=== PATIENT | female | born 1990 | race Caucasian/White ===

== ENCOUNTER 2016-06-14 18:39 | Emergency (ER) | payer OTHER ==
[2016-06-14 19:03] VITALS: BP 129/78
--- NOTE | 2016-06-14 20:10 | UC ---
Headache HPI - HPI Summary HPI Summary: The patient comes in today for: 1. Headache: Onset: 7 hours. Palliative/provocative: Nothing makes it better or worse. Quality: Throbbing headache. Region: Behind the eyes and in the occiput. Severity: 8/10 Time: Constant. Associated symptoms: Previous treatment: Ibuprofen 400 mg at 1 PM today--no help. Tylenol 1000 mg x 1 at 5 PM--no help. Migraine history: In 2011 at [facility], she was seen and diagnosed as having a migraine at that time. The headache was at the base of her neck and behind her eyes. She got Naproxen. At times it helped. These headaches were random (once every 2 months). Now, starting about 2 weeks ago she had onset of her "regular headaches." She states that her "regular" headaches are always frontal, but not occipetal. And they are lesser in pain. But, she states that her "migraine headaches" are also frontal and occipetal and more severe. Starting two weeks ago, she has had new symptoms (tingling of her fingers, and moves down her leg). She started with a "migraine" headache today. She states that the light makes her headache throb more. Vomiting x 1 today (1-2 hours ago). She states that she has tingling in her left hand. She has other family members with "migraine." She has never seen a neurologist. The patient states that she takes ibuprofen "all the time" and has no problems. She has problems with naproxen. * - History Of Current Complaint Chief Complaint: UCBackPain Stated Complaint: SEVERE BANG-INDUCING VOMITING Time Seen by Provider: 06/14/16 19:56 Hx Obtained From: Patient Hx Last Menstrual Period: 06/08/16 ?: No - Allergies/Home Medications Allergies/Adverse Reactions: Allergies Allergy/AdvReac Type Severity Reaction Status Date / Time Naproxen [From Naprosyn] Allergy Itching, Verified 06/14/16 19:02 "I felt like I had bugs crawling all over me." Home Medications: Home Medications Acetaminophen [Extra Strength Acetaminop] 1,000 mg PO ONCE PRN 06/14/16 [ History Confirmed 06/14/16] Ibuprofen TAB* [Advil TAB*] 400 mg PO Q6H PRN 06/14/16 [History Confirmed ] PMH/Surg Hx/FS Hx/Imm Hx Previously Healthy: No Endocrine History Of: Denies: Diabetes, Thyroid Disease, Hyperthyroidism, Hypothyroidism, Dyslipidemia Cardiovascular History Of: Denies: Cardiac Disorders, Hypertension, Pacemaker/ICD, Myocardial Infarction , Congestive Heart Failure, Atrial Fibrillation, Deep Vein Thrombosis, Bleeding Disorders Respiratory History Of: Denies: COPD, Asthma, Bronchitis, Pneumonia, Pulmonary Embolism GI/ History Of: Denies: Gastroesophageal Reflux, Ulcer, Gastrointestinal Bleed, Gall Bladder Disease, Kidney Stones, Diverticulitis, Renal Disease, Urosepsis Neurological History Of: Reports: Migraine Denies: TIA, CVA, Dementia, Seizures Psychological History Of: Reports: Depression, Bipolar Disorder Denies: Anxiety, Schizophrenia, Post Traumatic Stress Disorder Cancer History Of: Denies: Lung Cancer, Colorectal Cancer, Breast Cancer, Prostate Cancer, Cervical Cancer Other History Of: Negative For: HIV, Hepatitis B, Hepatitis C, Anticoagulant Therapy - Surgical History Surgical History: Yes Surgery Procedure, Year, and Place: , 2006, [facility]. [facility], 2011, Dr. Stephan Mcghee - Family History Known Family History: Positive: Hypertension, Diabetes - Social History Occupation: Employed Full-time Alcohol Use: Rare Substance Use Type: None Smoking Status (MU): Heavy Every Day Tobacco Smoker Type: Cigarettes Amount Used/How Often: 1 PPD Length of Time of Smoking/Using Tobacco: 10 yrs Have You Smoked in the Last Year: Yes Household Exposure Type: Cigarettes Review of Systems Constitutional: Negative Skin: Negative Eyes: Negative ENT: Negative Respiratory: Negative Cardiovascular: Negative Gastrointestinal: Negative Genitourinary: Negative All Other Systems Reviewed And Are Negative: Yes Physical Exam Triage Information Reviewed: Yes Appearance: Well-Appearing, No Pain Distress, Well-Nourished Vital Signs: Initial Vital Signs Temp 98 F 06/14/16 18:54 Pulse 96 06/14/16 18:54 Resp 16 06/14/16 18:54 BP 129/78 06/14/16 18:54 Pulse Ox 98 06/14/16 18:54 Vital Signs Reviewed: Yes Eyes: Positive: Conjunctiva Clear. Negative: Discharge ENT: Positive: Hearing grossly normal. Negative: Pharyngeal erythema, Nasal congestion, Nasal drainage, TM bulging, TM dull, TM red, Tonsillar swelling, Tonsillar exudate Dental: Negative: Gross Decay/Caries @, Dental Fracture @ Neck: Positive: Supple, Nontender, No Lymphadenopathy. Negative: Nuchal Rigidity Respiratory: Positive: Lungs clear, No respiratory distress, No accessory muscle use. Negative: Crackles, Wheezing Cardiovascular: Positive: RRR, No Murmur Abdomen Description: Positive: Nontender, No Organomegaly, Soft. Negative: Distended, Guarding, Peritoneal Signs Musculoskeletal: Positive: Strength Intact, ROM Intact Neurological: Positive: Alert, Muscle Tone Normal, Other: - Neurologic exam: Inspection: No fasciculations. Muscular tone: Normal Strength: Upper and lower extremities symmetrical and appropriate for age. Cranial nerves: II through XII were normal. Reflexes: Upper extremity: biceps: 2+/2 x 2, triceps: 2+/2 x 2, brachioradialis: 2+/2 x 2 Lower extremity: Patellar: 2+ /2 x 2, Achilles: 2+/2 x 2 Gait: Normal Coordination: Upper: Finger to nose and alternating palms on thighs: Normal Lower: Heel along montero: Normal Rhomberg: Normal. Negative: Lethargic Psychological: Positive: Age Appropriate Behavior, Consolable Skin: Negative: rashes, breakdown Headache Course/Dx - Course Course Of Treatment: The patient was told of her treatment options. She states that she can't take naproxen due to side effects, but she uses ibuprofen "all the time" with no problems. She wants to go back to work tonight. She was told of her treatment options. She wants to go with a muscle relaxant. With her taking Wellbutrin, baclofen may increase the risk of seizures, so valium was given to use at bedtime. - Differential Dx/Diagnosis Provider Diagnoses: Headache (muscular contraction). neck strain Discharge - Discharge Plan Condition: Stable Disposition: HOME Patient Education Materials: General Headache (ED) Referrals: No Primary Care Phys,NOPCP [Primary Care Provider] - 1 Week (Please see your primary care provider in about a week to see how well you are doing. If you get worse, please be seen sooner.)
[2016-06-14] MEDS ORDERED: Ketorolac INJ* 60 MG/2 ML VIAL IM ONE (20:26)
== END 2016-06-14 21:06 | disposition home or self-care (01) ==
LOC: UCCORT 18:39
DX: S16.1XXA Strain of muscle, fascia and tendon at neck level, initial encounter (principal); X58.XXXA Exposure to other specified factors, initial encounter; Y93.9 Activity, unspecified; Y92.9 Unspecified place or not applicable; G44.209 Tension-type headache, unspecified, not intractable; Z88.6 Allergy status to analgesic agent; F17.210 Nicotine dependence, cigarettes, uncomplicated
CPT/HCPCS: 96372; 99212; G0463; J1885

== ENCOUNTER 2017-04-18 15:56 | Emergency (ER) | payer OTHER ==
[2017-04-18 17:02] VITALS: BP 142/78
--- NOTE | 2017-04-18 17:22 | UC ---
Complaint Female HPI - HPI Summary HPI Summary: vaginal discharge x 2 days + itchy, bad odor feels like BV , Hx of BV multiple times no new sexual partner no hx of STDs - History Of Current Complaint Chief Complaint: UCGU Stated Complaint: PERSONAL Time Seen by Provider: 04/18/17 17:17 Hx Obtained From: Patient Hx Last Menstrual Period: 02/14/18 Onset/Duration: Gradual Onset, Lasting Days - 2, Still Present Timing: Constant Severity Initially: Moderate Severity Currently: Moderate Character: Not Applicable Aggravating Factor(s): Nothing Associated Signs And Symptoms: Positive: Vaginal Discharge. Negative: Fever, Back Pain, Vaginal Bleeding/Discharge, Nausea, Vomiting(# Of Episodes =), Genital Swelling, Genital Blisters, Retained Foregin Body (Specify) Related Hx: Similar Episode/Dx as: - BV - Allergies/Home Medications Allergies/Adverse Reactions: Allergies Allergy/AdvReac Type Severity Reaction Status Date / Time Naproxen [From Naprosyn] Allergy Itching, Verified 04/18/17 16:57 "I felt like I had bugs crawling all over me." Home Medications: Home Medications ARIPiprazole TAB* [Abilify TAB*] 5 mg PO DAILY 04/18/17 [History Confirmed ] PMH/Surg Hx/FS Hx/Imm Hx Previously Healthy: Yes Other History Of: Negative For: HIV, Hepatitis B, Hepatitis C, Anticoagulant Therapy - Surgical History Surgical History: Yes Surgery Procedure, Year, and Place: , 2006, [facility]. [facility], 2012, Dr. Stephan Mcghee - Family History Known Family History: Positive: Hypertension, Diabetes - Social History Alcohol Use: Rare Substance Use Type: None Smoking Status (MU): Heavy Every Day Tobacco Smoker Type: Cigarettes Amount Used/How Often: 1 PPD Length of Time of Smoking/Using Tobacco: 10 yrs Have You Smoked in the Last Year: Yes Household Exposure Type: Cigarettes Review of Systems Constitutional: Negative Skin: Negative Eyes: Negative ENT: Negative Respiratory: Negative Cardiovascular: Negative Gastrointestinal: Negative Genitourinary: Vaginal/Penile Itching, Vaginal/Penile Discharge Is Patient Immunocompromised?: No All Other Systems Reviewed And Are Negative: Yes Physical Exam Triage Information Reviewed: Yes Appearance: Well-Appearing, No Pain Distress, Well-Nourished Vital Signs: Initial Vital Signs Temp 99.3 F 04/18/17 16:58 Pulse 88 01/19/18 16:58 Resp 16 04/18/17 16:58 BP 142/78 04/18/17 16:58 Vital Signs Reviewed: Yes Eyes: Positive: Conjunctiva Clear ENT: Positive: Normal ENT inspection, Hearing grossly normal, Pharynx normal, Pharyngeal erythema Neck: Positive: Supple, Nontender, No Lymphadenopathy Respiratory: Positive: Chest non-tender, Lungs clear, Normal breath sounds Cardiovascular: Positive: RRR, No Murmur, Pulses Normal UC Physical Exam Vital Signs On Initial Exam: Initial Vitals Temp Pulse Resp BP 99.3 F 88 16 142/78 04/18/17 16:58 04/18/17 16:58 04/18/17 16:58 04/18/17 16:58 - Genitalia Exam Female Genitourinary: Other - no done Complaint Female Dx - Differential Dx/Diagnosis Provider Diagnoses: BV Discharge - Discharge Plan Condition: Stable Disposition: HOME Prescriptions: Metronidazole [Flagyl 500 MG TAB] 500 mg PO BID #14 tab Patient Education Materials: Bacterial Vaginosis (ED) Referrals: Bobbi Wisdom MD [Primary Care Provider] - If Needed
== END 2017-04-18 17:24 | disposition home or self-care (01) ==
LOC: UCCORT 15:56
DX: N76.0 Acute vaginitis (principal); F17.210 Nicotine dependence, cigarettes, uncomplicated; Z88.8 Allergy status to other drugs, medicaments and biological substances
CPT/HCPCS: 99212; G0463

== ENCOUNTER 2017-07-02 17:14 | Emergency (ER) | payer OTHER ==
[2017-07-02 18:17] VITALS: BP 125/69
--- NOTE | 2017-07-02 18:41 | UC ---
FLU HPI - HPI Summary HPI Summary: Pt c/o sudden onset of generalized malaise, sore throat, BANG, fatigue, has known exposure to flu. - History of Current Complaint Chief Complaint: UCRespiratory Stated Complaint: SORE THROAT, COUGH, ACHY BODY Time Seen by Provider: 07/02/17 18:35 Hx Obtained From: Patient Hx Last Menstrual Period: 06/15/17 ?: No Onset/Duration: Sudden Onset, Lasting Days, Still Present Severity Currently: Moderate Severity Initially: Moderate Pain Intensity: 7 Associated Signs & Symptoms: Positive: Fever - subjective, Myalgia, Cough, Sore Throat Related Hx: Possible Flu/Infectious Exposure - Allergy/Home Medications Allergies/Adverse Reactions: Allergies Allergy/AdvReac Type Severity Reaction Status Date / Time No Known Allergies Allergy Verified 07/02/17 18:13 Home Medications: Home Medications buPROPion SR TAB* [Wellbutrin SR TAB*] 150 mg QAM 07/02/17 [History Confirmed ] PMH/Surg Hx/FS Hx/Imm Hx Previously Healthy: Yes Other History Of: Negative For: HIV, Hepatitis B, Hepatitis C, Anticoagulant Therapy - Surgical History Surgical History: Yes Surgery Procedure, Year, and Place: , 2006, [facility]. [facility], 2012, Dr. Stephan Mcghee - Family History Known Family History: Positive: Hypertension, Diabetes - Social History Occupation: Employed Full-time Lives: With Family Alcohol Use: Occasionally Substance Use Type: None Smoking Status (MU): Heavy Every Day Tobacco Smoker Type: Cigarettes Amount Used/How Often: 1 PPD Length of Time of Smoking/Using Tobacco: 10 yrs Have You Smoked in the Last Year: Yes Household Exposure Type: Cigarettes Review of Systems Constitutional: Fever, Chills, Fatigue Skin: Negative Eyes: Negative ENT: Sore Throat, Sinus Congestion Respiratory: Cough Cardiovascular: Negative Gastrointestinal: Negative Genitourinary: Negative Motor: Negative Neurovascular: Negative Musculoskeletal: Myalgia Neurological: Headache Psychological: Negative Is Patient Immunocompromised?: No All Other Systems Reviewed And Are Negative: Yes Physical Exam Triage Information Reviewed: Yes Appearance: Ill-Appearing Vital Signs: Initial Vital Signs Temp 97.9 F 07/02/17 18:14 Pulse 83 07/02/17 18:14 Resp 16 07/02/17 18:14 BP 125/69 07/02/17 18:14 Pulse Ox 96 07/02/17 18:14 Vital Signs Reviewed: Yes Eye Exam: Normal ENT Exam: Other ENT: Positive: Nasal congestion Dental Exam: Normal Neck exam: Normal Cardiovascular Exam: Normal Musculoskeletal Exam: Normal Neurological Exam: Normal Psychological Exam: Normal Skin Exam: Normal Flu Course/Dx - Course Course Of Treatment: Pt declined flu testing. - Differential Dx/Diagnosis Differential Diagnosis/HQI/PQRI: Influenza, Upper Respiratory Infection Provider Diagnoses: viral syndrome Discharge - Sign-Out/Discharge Documenting (check all that apply): Discharge - Discharge Plan Condition: Stable Disposition: HOME Patient Education Materials: Viral Syndrome (ED) Forms: *Work Release Referrals: Bobbi Wisdom MD [Primary Care Provider] - If Needed - Billing Disposition and Condition Condition: STABLE Disposition: HOME
== END 2017-07-02 18:50 | disposition home or self-care (01) ==
LOC: UCCORT 17:14
DX: B34.9 Viral infection, unspecified (principal); F17.210 Nicotine dependence, cigarettes, uncomplicated
CPT/HCPCS: 99211; G0463

== ENCOUNTER 2017-10-17 10:15 | Emergency (ER) | payer SELFPAY ==
[2017-10-17 10:49] VITALS: BP 119/58
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
== END 2017-10-17 11:12 | disposition home or self-care (01) ==
LOC: UCCORT 10:15
DX: M54.5 Low back pain (principal); F17.210 Nicotine dependence, cigarettes, uncomplicated
CPT/HCPCS: 99201; G0463

== ENCOUNTER → 2017-10-21 11:08 | Emergency (ER) | payer SELFPAY ==
[~2017-10-21 11:08] MED LIST: Ketorolac INJ* 60 MG/2 ML VIAL IM ONE
[2017-10-21 11:31] VITALS: BP 131/55
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
== END | disposition home or self-care (01) ==
LOC: ED 11:08
DX: M54.5 Low back pain (principal); G89.29 Other chronic pain; F17.210 Nicotine dependence, cigarettes, uncomplicated
CPT/HCPCS: 99281; J1885

== ENCOUNTER 2017-11-14 20:56 | Inpatient (IN) | payer MEDICAID ==
--- OUTSIDE RECORDS SUMMARY | 2017-11-14 21:51 | XMS REPORT ---
:1990 External Reference #:[id number] Author Organization [facility] Address [address] [place] [address] [place] [address] Phone [phone] Care Team Providers Name Role Phone Patient's Choice Care Team Information Senior Qa Analyst Unavailable Patient's Choice Primary Care Physician Unavailable Payers Type Date Identification Numbers Payment Provider Subscriber Commercial Effective: Policy Number: Heath aSnchez 2007 [id number] PayID: [id number] [address] [place] [address] 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 [employer] ETOH Use Denies alcohol use Smoking Heavy tobacco smoker (more than 10 cigarettes/day) Allergies, Adverse Reactions, Alerts Date Description Reaction Status Severity Comments 10/21/2017 Paxil active 10/21/2017 Prozac active 10/21/2017 Zoloft active 10/21/2017 Lexapro active 10/21/2017 Ssri's active 11/25/2011 NKDA inactive Medications Medication Date Status Form Strength Qnty SIG Indications Ordering Provider Buspirone HCL 10/21/ Active Tablets 10mg 60tab 1 tab F41.1 Taylor 2018 s twice a Senner, day DO Ibuprofen / Active Tablets 600mg 90tab tid White, 0000 s MD Vanesa Multi Complete / Active Capsules daily Unknown 0000 Cyclobenzaprine / Active Tablets 5mg currently Unknown HCL 0000 not taking- take one tablet by mouth every 8 hours prn. Abilify / Hx Tablets 5mg 30tab 1 po qd White, 0000 - s Vanesa, 2017 Wellbutrin SR / Hx Tablets ER 150mg 60tab 1 po bid White, 0000 - 12HR s Vanesa, 2017 Vital Signs Date Vital Result Comment 10/21/2017 Weight 262.00 lb Heart Rate 80 /min BP Systolic Sitting 132 mmHg BP Diastolic Sitting 77 mmHg Respiratory Rate 18 /min Pain Level 8 back O2 % BldC Oximetry 100 % 11/25/2011 Weight 230.00 lb Heart Rate 80 /min BP Systolic Sitting 124 mmHg BP Diastolic Sitting 80 mmHg Results Description No Information Procedures Description No Information Encounters Type Date Location Provider CPT E/M Dx Office Visit 11/29/2011 [facility], [address] 845.00 10:00a CBertram Gregg Office Visit 11/25/2011 [facility] Otto Abebe M.D. 87850 719.46 3:45p AT [facility] Future Appointment(s):10/28/2017 2:30 pm - Rick Soni MD at [facility]10/21/2017 - Taylor Liu DOM54.5 Low back painRecommendations: Follow up with Physical BrexyjsD57.1 Generalized anxiety disorderNew Medication: Buspirone HCL 10 mgReferral:No Doctor SelectedPatient's Choice,Recommendations: Make an appointment with the psychiatrist and continue to follow up with your therapist
--- OUTSIDE RECORDS SUMMARY | 2017-11-14 21:51 | XMS REPORT ---
:1990 External Reference #:[id number] Author Organization [facility] Address [address] [place] [address] Phone [phone] Care Team Providers Name Role Phone Patient's Choice Care Team Information Occupational Medicine Physician Unavailable Patient's Choice Primary Care Physician Unavailable Payers Type Date Identification Numbers Payment Provider Subscriber Commercial Effective: Policy Number: Heath Sanchez 2007 [id number] PayID: [id number] [address] [place] [address] [facility] Policy Number: [id number] Medicaid Arina Sanchez Group Name: 1 1 [address] PayID: [id number] [place] [address] Problems Description No Information Family History Date Family Member(s) Problem(s) Comments General bipolar General anxiety Social History Type Date Description Comments 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 71082 719.46 3:45p AT [facility] Future Appointment(s):10/28/2017 2:30 pm - Rick Soni MD at [facility]10/21/2017 - Taylor Liu DOM54.5 Low back painRecommendations: Follow up with Physical EoqtuuoA10.1 Generalized anxiety disorderNew Medication: Buspirone HCL 10 mgReferral:No Doctor SelectedRecommendations:Make an appointment with the psychiatrist and continue to follow up with your therapist
[2017-11-14 23:24] LABS: Urine Appearance Cloudy; Urine Blood 1+ (Negative); Urine Color Yellow; Urine Ketones 1+ (Negative); Urine Protein Negative (Negative); Urine Red Blood Cell 3+(>10/hpf) (Absent); Urine Urobilinogen Negative (Negative); Urine White Blood Cell 3+(>20/hpf) (Absent)
[2017-11-14 23:26] LABS: ABS Basophils 0.1 10^3/ul (0-0.2); ABS Eosinophils 0.1 10^3/ul (0-0.6); ABS Neutrophils 11.6 10^3/ul (1.5-7.7); ABS Nucleated RBC 0 10^3/ul; Eosinophil % 0.9 % (0-6); Hematocrit 48 % (35-47); Hemoglobin 16.4 g/dl (12.0-16.0); Mean Corpuscular HGB Conc 34 g/dl (31-36); Mean Corpuscular Hemoglobin 30 pg (27-31); Mean Corpuscular Volume 88 fL (80-97); Mean Platelet Volume 8.5 um3 (7.4-10.4); Nucleated Red Blood Cells % 0; Platelet Count 410 10^3/ul (150-450); Red Blood Count 5.45 10^6/ul (4.00-5.40); Red Cell Distribution Width 12 % (10.5-15); White Blood Count 15.8 10^3/ul (3.5-10.8)
[2017-11-14] MEDS ORDERED: NS 0.9% 1000 ML* 1,000 ML IV ONE (23:40)
--- NOTE | 2017-11-14 23:40 | ED ---
Psychiatric Complaint - HPI Summary HPI Summary: This patient is a 27-year-old female who presents to the emergency department with a her boyfriend with a chief complaint of having depression. The patient doesn't cooperate well a good history. The patient's boyfriend reports that for the last couple days the patient is a having decreased appetite,sleeping most of the day, and communicating ventilator with him. He reports that a couple years ago she had the same symptoms and she was diagnosed with bipolar disorder. Apparentlythe patient had an episode catatonia The patient was hospitalizedand the symptoms improved. - History Of Current Complaint Chief Complaint: EDMentalHealth Time Seen by Provider: 11/14/17 23:09 Hx Last Menstrual Period: pt has an IUD and states not getting a menses - Allergies/Home Medications Allergies/Adverse Reactions: Allergies Allergy/AdvReac Type Severity Reaction Status Date / Time No Known Allergies Allergy Verified 11/14/17 21:28 Home Medications: Home Medications Ibuprofen TAB* [Motrin TAB* 400 MG] 400 mg PO Q6H PRN 11/14/17 [History Confirmed 11/14/17] PMH/Surg Hx/FS Hx/Imm Hx Previously Healthy: Yes Endocrine/Hematology History: Denies: Hx Anticoagulant Therapy, Hx Diabetes, Hx Thyroid Disease Cardiovascular History: Denies: Hx Congestive Heart Failure, Hx Deep Vein Thrombosis, Hx Hypertension , Hx Myocardial Infarction, Hx Pacemaker/ICD Respiratory History: Denies: Hx Asthma, Hx Chronic Obstructive Pulmonary Disease (COPD), Hx Lung Cancer, Hx Pneumonia, Hx Pulmonary Embolism GI History: Denies: Hx Gall Bladder Disease, Hx Gastrointestinal Bleed, Hx Ulcer, Hx Urosepsis History: Denies: Hx Kidney Stones, Hx Renal Disease Musculoskeletal History: Reports: Hx Back Problems Neurological History: Reports: Hx Migraine Denies: Hx Dementia, Hx Seizures, Hx Transient Ischemic Attacks (TIA) Psychiatric History: Reports: Hx Depression, Hx Bipolar Disorder Denies: Hx Anxiety, Hx Schizophrenia - Surgical History Surgery Procedure, Year, and Place: , 2006, [facility] Infectious Disease History: No Infectious Disease History: Denies: Traveled Outside the [place] in Last 30 Days - Family History Known Family History: Positive: Hypertension, Diabetes - Social History Alcohol Use: Occasionally Substance Use Type: Reports: Cocaine Substance Use Comment - Amount & Last Used: no use in 2 weeks, states in an out pt tx center Smoking Status (MU): Heavy Every Day Tobacco Smoker Type: Cigarettes Amount Used/How Often: 1 PPD Length of Time of Smoking/Using Tobacco: since age 14 Have You Smoked in the Last Year: Yes Review of Systems Constitutional: Negative Eyes: Negative ENT: Negative Positive: Palpitations Respiratory: Negative Gastrointestinal: Negative Genitourinary: Negative Positive: Arthralgia, Other - chronic back pain chronic back pain Skin: Negative Neurological: Negative Positive: Anxious, Depressed All Other Systems Reviewed And Are Negative: Yes Physical Exam - Summary Physical Exam Summary: VITAL SIGNS: Reviewed. GENERAL: Patient is an obese female who is lying comfortable in the stretcher. Patient is not in any acute respiratory distress. HEAD AND FACE: No signs of trauma. No ecchymosis, hematomas or skull depressions. No sinus tenderness. EYES: PERRLA, EOMI x 2, No injected conjunctiva, no nystagmus. EARS: Hearing grossly intact. Ear canals and tympanic membranes are within normal limits. MOUTH: Oropharynx within normal limits. NECK: Supple, trachea is midline, no adenopathy, no JVD, no carotid bruit, no c- spine tenderness, neck with full ROM. CHEST: Symmetric, no tenderness at palpation LUNGS: Clear to auscultation bilaterally. No wheezing or crackles. CVS: Regular rate and rhythm, S1 and S2 present, no murmurs or gallops appreciated. ABDOMEN: Soft, non-tender. No signs of distention. No rebound no guarding, and no masses palpated. Bowel sounds are normal. EXTREMITIES: FROM in all major joints, no edema, no cyanosis or clubbing. NEURO: Alert and oriented x 3. No acute neurological deficits. Speech is normal and follows commands. SKIN: Dry and warm PSYCH: Depressed, quiet, denies any suicidal thoughts or plan. No homicidal thoughts or plan. No signs of psychosis or pressure speech. No tangential speech. Triage Information Reviewed: Yes Vital Signs On Initial Exam: Initial Vitals Temp Pulse Resp BP Pulse Ox 98.8 F 108 20 148/94 100 11/14/17 21:25 11/14/17 21:25 11/14/17 21:25 11/14/17 21:25 11/14/17 21:25 Vital Signs Reviewed: Yes Diagnostics - Vital Signs Vital Signs Temp Pulse Resp BP Pulse Ox 11/14/17 21:25 98.8 F 108 20 148/94 100 - Laboratory Lab Results: Lab Results 11/14/17 11/14/17 Range/Units 23:12 23:21 WBC 15.8 H (3.5-10.8) 10^3/ul RBC 5.45 H (4.00-5.40) 10^6/ul Hgb 16.4 H (12.0-16.0) g/dl Hct 48 H (35-47) % MCV 88 (80-97) fL MCH 30 (27-31) pg MCHC 34 (31-36) g/dl RDW 12 (10.5-15) % Plt Count 410 (150-450) 10^3/ul MPV 8.5 (7.4-10.4) um3 Neut % (Auto) 73.2 (38-83) % Lymph % (Auto) 19.0 L (25-47) % [place] % (Auto) 6.2 (0-7) % Eos % (Auto) 0.9 (0-6) % Baso % (Auto) 0.7 (0-2) % Absolute Neuts (auto) 11.6 H (1.5-7.7) 10^3/ul Absolute Lymphs (auto) 3.0 (1.0-4.8) 10^3/ul Absolute Monos (auto) 1.0 H (0-0.8) 10^3/ul Absolute Eos (auto) 0.1 (0-0.6) 10^3/ul Absolute Basos (auto) 0.1 (0-0.2) 10^3/ul Absolute Nucleated RBC 0 10^3/ul Nucleated RBC % 0 Urine Color Yellow Urine Appearance Cloudy Urine pH 6.0 (5-9) Ur Specific [place] 1.010 (1.010-1.030) Urine Protein Negative (Negative) Urine Ketones 1+ A (Negative) Urine Blood 1+ A (Negative) Urine Nitrate Negative (Negative) Urine Bilirubin Negative (Negative) Urine Urobilinogen Negative (Negative) Ur Leukocyte Esterase 3+ A (Negative) Urine WBC (Auto) 3+(>20/hpf) A (Absent) Urine RBC (Auto) 3+(>10/hpf) A (Absent) Ur Squamous Epith Cells Present A (Absent) Urine Bacteria 1+ A (Absent) Urine Glucose Negative (Negative) Result Diagrams: 11/14/17 23:21 11/14/17 23:21 Lab Statement: Any lab studies that have been ordered have been reviewed, and results considered in the medical decision making process. - Radiology chest x-ray Xray Interpretation: No Acute Changes Radiology Interpretation Completed By: ED Physician Course/Dx - Course Assessment/Plan: blood test results shows a what was a count of 15.8,hemoglobin 16.4 hematocrit of 48 possibly secondary to dehydration. Urinalysis is contaminated. We will send the urine for urine cultures. Chest x-ray impression: No acute cardiopulmonary disease. Patient is medically clear. Patient is awaiting for mental health evaluation. Patient will be signed out to Dr. Sosa at shift change. - Differential Dx/Clinical Impression Differential Diagnosis/HQI/PQRI: Positive: Bipolar Disorder, Depression Provider Diagnosis: Depression Discharge - Sign-Out/Discharge Documenting (check all that apply): Sign-Out Patient Signing out patient TO: Mare Sosa - Discharge Plan Referrals: Bobbi Wisdom MD [Primary Care Provider] -
[2017-11-14 23:42] LABS: EGFR Non-African American 95.8 (>60)
[2017-11-15] MEDS ORDERED: Cephalexin CAP* 500 MG PO ONE (05:05)
--- NOTE | 2017-11-15 06:16 | ED ---
Progress - Progress Note Progress Note: Patient received from Dr. Avila upon shift change pending MHE and disposition. Patient will be signed out to Dr. Jain pending MHE and disposition. Course/Dx - Course Course Of Treatment: Patient received from Dr. Avila upon shift change pending MHE and disposition. Patient will be signed out to Dr. Jain pending MHE and disposition. - Diagnoses Provider Diagnoses: Depression Discharge - Sign-Out/Discharge Documenting (check all that apply): Sign-Out Patient, Receiving Sign-Out Signing out patient TO: Lobo Jain - Upon shift change pending MHE and disposition Receiving patient FROM: Prasanna Avila - Upon shift change pending MHE and disposition - Discharge Plan Condition: Stable Referrals: Bobbi Wisdom MD [Primary Care Provider] - Attestations Scribe Attestation: This is cristobal Cazares documenting for attending Mare Sosa MD. User Type: Provider with Scribe Provider Attestation: The documentation recorded by the scribe accurately reflects the service I personally performed and the decisions made by me.
--- NOTE | 2017-11-15 07:04 | ED ---
Progress - Progress Note Progress Note: Patient received from Dr. Sosa upon shift change pending MHE and disposition. Patient will be signed out to Dr. Jain pending MHE and disposition. 07:00- The pt received from Dr. Sosa and is still awaiting a MHE Course/Dx - Course Course Of Treatment: Guzman Alvarez MD diagnosed the pt with bipolar disorder and recommended an involuntary admission. - Diagnoses Provider Diagnoses: Depression, Bipolar 1 disorder Discharge - Sign-Out/Discharge Documenting (check all that apply): Patient Departure - Admitted, Receiving Sign -Out Receiving patient FROM: Mare Sosa - Discharge Plan Condition: Stable Disposition: ADMITTED TO [facility] - Billing Disposition and Condition Condition: STABLE Disposition: Admitted to [facility]
--- NOTE | 2017-11-15 07:30 | PN ---
ED Flex Patient Progress Note Subjective: This is a 27 year-old F who is pending psychiatric evaluation by Dr. Turner secondary to bipolar, increased depression . Pt offers no complaints at this time. WOuld like breakfast Objective: General NAD, Alert and oriented x3, low mood. Heart: rrr S1,S2 Lungs: CTA, BREATHING EASILY ab: +BS, soft, NTTP Laboratory: Current laboratory results documented below. Assessment: Exacerbation of Depression, bipolar d/o Plan: Pending psychiatric eval. Will follow up daily __while in ED___. Vital Signs Temp Pulse Resp BP Pulse Ox 98.8 F 80 18 110/63 98 11/14/17 21:25 11/15/17 02:13 11/15/17 02:13 11/15/17 02:13 11/15/17 02:13 Lab Results - Entire Visit 11/14/17 11/14/17 11/14/17 23:21 23:21 23:12 WBC 15.8 H RBC 5.45 H Hgb 16.4 H Hct 48 H MCV 88 MCH 30 MCHC 34 RDW 12 Plt Count 410 MPV 8.5 Neut % (Auto) 73.2 Lymph % (Auto) 19.0 L [place] % (Auto) 6.2 Eos % (Auto) 0.9 Baso % (Auto) 0.7 Absolute Neuts (auto) 11.6 H Absolute Lymphs (auto) 3.0 Absolute Monos (auto) 1.0 H Absolute Eos (auto) 0.1 Absolute Basos (auto) 0.1 Absolute Nucleated RBC 0 Nucleated RBC % 0 Sodium 137 Potassium 4.0 Chloride 105 Carbon Dioxide 22 Anion Gap 10 BUN 9 Creatinine 0.72 Est GFR ( Amer) 115.9 Est GFR (Non-Af Amer) 95.8 BUN/Creatinine Ratio 12.5 Glucose 100 Calcium 9.2 Total Bilirubin 1.10 H AST 22 ALT 32 Alkaline Phosphatase 83 Total Protein 8.2 Albumin 4.5 Globulin 3.7 Albumin/Globulin Ratio 1.2 TSH 0.59 Urine Color Urine Appearance Urine pH Ur Specific [place] Urine Protein Urine Ketones Urine Blood Urine Nitrate Urine Bilirubin Urine Urobilinogen Ur Leukocyte Esterase Urine WBC (Auto) Urine RBC (Auto) Ur Squamous Epith Cells Urine Bacteria Urine Glucose Salicylates < 2.50 Urine Opiates Screen None detected Acetaminophen < 15 Ur Barbiturates Screen None detected Ur Phencyclidine Scrn None detected Ur Amphetamines Screen None detected U Benzodiazepines Scrn None detected Urine Cocaine Screen None detected U Cannabinoids Screen None detected Serum Alcohol < 10 11/14/17 23:12 WBC RBC Hgb Hct MCV MCH MCHC RDW Plt Count MPV Neut % (Auto) Lymph % (Auto) [place] % (Auto) Eos % (Auto) Baso % (Auto) Absolute Neuts (auto) Absolute Lymphs (auto) Absolute Monos (auto) Absolute Eos (auto) Absolute Basos (auto) Absolute Nucleated RBC Nucleated RBC % Sodium Potassium Chloride Carbon Dioxide Anion Gap BUN Creatinine Est GFR ( Amer) Est GFR (Non-Af Amer) BUN/Creatinine Ratio Glucose Calcium Total Bilirubin AST ALT Alkaline Phosphatase Total Protein Albumin Globulin Albumin/Globulin Ratio TSH Urine Color Yellow Urine Appearance Cloudy Urine pH 6.0 Ur Specific [place] 1.010 Urine Protein Negative Urine Ketones 1+ A Urine Blood 1+ A Urine Nitrate Negative Urine Bilirubin Negative Urine Urobilinogen Negative Ur Leukocyte Esterase 3+ A Urine WBC (Auto) 3+(>20/hpf) A Urine RBC (Auto) 3+(>10/hpf) A Ur Squamous Epith Cells Present A Urine Bacteria 1+ A Urine Glucose Negative Salicylates Urine Opiates Screen Acetaminophen Ur Barbiturates Screen Ur Phencyclidine Scrn Ur Amphetamines Screen U Benzodiazepines Scrn Urine Cocaine Screen U Cannabinoids Screen Serum Alcohol
--- NOTE | 2017-11-15 07:36 | RAD ---
HISTORY: increased WBC COMPARISONS: None VIEWS: 2: Frontal and lateral views of the chest. The patient is obliqued to the left. FINDINGS: CARDIOMEDIASTINAL SILHOUETTE: The cardiomediastinal silhouette is normal. DAVIS: The davis are normal. PLEURA: The costophrenic angles are sharp. No pleural abnormalities are noted. LUNG PARENCHYMA: There is patchy alveolar opacification of the right lung base near the cardiophrenic angle. ABDOMEN: The upper abdomen is clear. There is no subphrenic gas. BONES AND SOFT TISSUES: No bone or soft tissue abnormalities are noted. OTHER: None. IMPRESSION: PATCHY ATELECTASIS VERSUS EARLY CONSOLIDATION OF THE RIGHT LOWER LUNG. RECOMMEND FOLLOW-UP UNTIL RESOLUTION TO EXCLUDE UNDERLYING PULMONARY PARENCHYMAL PATHOLOGY. R1
[2017-11-15] MEDS ORDERED: Acetaminophen TAB* 325 MG PO ONE (14:37)
[2017-11-15] MEDS ORDERED: Al Hydrox/Mg Hydrox/Simet LIQ* 30 ML UDC PO PRN (14:45)
[2017-11-16] MEDS ORDERED: Acetaminophen TAB* 325 MG ONE (04:16)
[2017-11-16] MEDS ORDERED: diPHENhydraMINE PO* 50 MG ONE (04:17)
[2017-11-16] MEDS: Vitamin THERAPEUTIC TAB PO SCH (08:36)
[2017-11-16] MEDS ORDERED: Haloperidol TAB* 5 MG PO ONE ×2 (18:25→19:00)
[2017-11-16] MEDS ORDERED: LORazepam TAB(*) 1 MG PO ONE ×2 (18:25→19:00)
[2017-11-16] MEDS ORDERED: LORazepam TAB(*) 1 MG ONE (18:30)
[2017-11-16] MEDS ORDERED: Haloperidol TAB* 5 MG ONE (18:30)
[2017-11-16] MEDS: Lithium Carbonate TAB* 300 MG PO SCH (20:23)
[2017-11-16] MEDS ORDERED: QUEtiapine TAB* 100 MG PO SCH (21:00)
--- NOTE | 2017-11-16 21:28 | HP ---
HISTORY AND PHYSICAL: DATE OF ADMISSION: 11/15/17 IDENTIFYING DATA: Arina is a 27-year-old partnered, domiciled, white female, who was referred by her significant other and she was admitted on emergency status. SOURCE OF INFORMATION: The patient is acutely psychotic, uncooperative with answering questions, severely disorganized in her behavior. This note is dictated based on limited interaction with the patient, review of previous record here, and admission data. HISTORY OF PRESENT ILLNESS: The patient was reportedly driven to this hospital by her significant other, a . Milo Clark, who reported that about 2 days prior to presentation, the patient started having difficulty with insomnia, became increasingly disorganized in her thinking and behavior and extremely paranoid. As the patient's condition continued to deteriorate, he decided to bring her to the hospital. He mentioned that the patient has a history of bipolar disorder and has been in treatment at "somewhere in [facility]."He was unaware of the name of the providers or medications prescribed to the patient or if the patient had been adherent to treatment. The patient does have a history of polysubstance abuse. The boyfriend denied having observed the patient drinking or using drugs recently. REVIEW OF PSYCHIATRIC SYMPTOMS: The patient presents with symptoms of insomnia , decreased need for sleep, irritability, mood lability. Unable to assess for racing thoughts. She is not pressured in speech. She has been exhibiting paranoid delusions, long latencies in speech, and disorganized thinking and behavior. The patient admitted to high anxiety and was previously being prescribed buspirone by her outpatient providers. The patient denied recent use of alcohol or drugs. PAST PSYCHIATRIC HISTORY: The patient has a history of one admission here from 10/19/08 to 10/27/08 for treatment of a manic episode. She was discharged on lithium and Geodon in an improved state. T PAST MEDICAL HISTORY: Remarkable for morbid obesity. She denies any other active medical problems, any history of head trauma with loss of consciousness, seizures, or surgeries. ALLERGIES: No known drug allergies. SUBSTANCE ABUSE HISTORY: Notes indicate that the patient used to be a binge drinker and she also has used marijuana on a regular basis, had admitted to doing cocaine and "pills occasionally," and to smoking cigarettes. FAMILY HISTORY: She has a strong family history of bipolar disorder and substance use disorder. Her mother has a history of psychiatric hospitalization and was diagnosed with bipolar disorder. SOCIAL HISTORY: The patient lives in [place] with her significant other. There is mention of her having had a in the past, but the patient is unable to state how many children she has, whether or not she is employed or how long she has been in the current relationship. REVIEW OF MEDICAL SYMPTOMS: Obesity. PHYSICAL EXAMINATION VITAL SIGNS: On admission, respirations are 18. The patient has been compliant with taking of complete set of vitals. The patient declined physical examination. We will reattempt when the patient is no longer psychotic. MENTAL STATUS EXAM: Finds a morbidly obese, 27-year-old female with visible tattoos on her upper chest, who looks her stated age. She is disheveled in her appearance, she makes intense eye contact. She exhibits significant psychomotor retardation and long latencies in speech. She presents as psychotically related. She is uncooperative, for the most part, with answering questions. She perseveres on asking when her significant other was going to come and take her home. She exhibits paranoid and persecutory delusions. She is alert, but does seem oriented to place, time, and person. Attention, memory , and concentration are all poor. LABORATORY DATA: On admission, CBC shows WBC of 15.8, RBC of 5.45, hemoglobin of 16.4, hematocrit of 48, lymph percentage 19, absolute neutrophils 11.6, absolute mono 1.0. Complete metabolic panel: Total bilirubin of 1.10. Urinalysis shows 1+ ketones, 1+ blood, 3+ leukocyte esterase, 3+ wbc's, 3+ rbc's , 1+ urine bacteria. Urine toxicology screen is negative for all the tested substances. SUMMARY: A 27-year-old female with documented history of bipolar disorder, who was brought in by her boyfriend in a manic state and she was admitted for treatment. The patient also have a history of alcohol and cannabis use. She alluded to outpatient treatment in [facility], but was unable to state which medications she had been taking. Med reconciliation form showed the patient was only taking buspirone for anxiety. Her medical history is remarkable for morbid obesity. Her labs are abnormal and her chest x-ray is also abnormal. There is a significant family history of bipolar and substance abuse in the patient's biological family on the maternal side but no documented history of completed suicide. The patient's stressors are unclear at this point. DIAGNOSTIC IMPRESSIONS: Bipolar I disorder, current episode manic, severe with psychotic features; history of alcohol and cannabis dependence. TREATMENT PLAN: Admit to mental health unit, 15-minute checks, full code status. Legal status is emergency. Initiate comprehensive milieu, individual, and group psychotherapeutic supports. Medication management: Will start the patient on lithium 300 mg p.o. b.i.d. and on Seroquel 100 mg at bedtime to help regulate sleep and mood. The patient nodded when told about the indications, risks, benefits, and alternatives, but it is unclear whether or not she is in a state where she can make informed medical decisions. Hospitalist consult was requested to address the patient abnormal labs and chest-x-ray. Discharge planning will involve coordination of her aftercare with her current outpatient psychiatric providers. [id number]/[facility] #: [id number] [place]
[2017-11-17] MEDS: Lithium Carbonate TAB* 300 MG PO SCH ×2 (10:29→19:52)
[2017-11-17] MEDS: Vitamin THERAPEUTIC TAB PO SCH (10:29)
[2017-11-17] MEDS ORDERED: Mouth Piece, Nicotine* 1 EACH CARTRIDGE ONE (13:06)
[2017-11-17] MEDS ORDERED: Nicotine Inhaler* 10 MG AMP ONE (13:06)
[2017-11-17] MEDS: Nicotine Inhaler* 10 MG AMP INH PRN (13:09)
[2017-11-17] MEDS: Mouth Piece, Nicotine* 1 EACH CARTRIDGE INH PRN (13:09)
[2017-11-17] MEDS: Nicotine PATCH 21 MG/24 HR* PATCH TRANSDERM SCH (13:09)
--- NOTE | 2017-11-17 15:24 | PN ---
Subjective - Subjective Date of Service: 11/17/17 Service Type: [id number] Hosp care 25 min moderate complexity Subjective: Patient is difficult to engage in conversation. She presents as disorganized, guarded and irritable. She requests nicotine replacement then is leery of nursing staff administering it. Patient states that her boyfriend no longer wants her at their home in [place] "because I was doing drugs." She states she last smoked crack cocaine approx 1 month ago and denies other substance use. ( Her urine tox was negative). She states she was a client of [employer] in [place] and saw Ana Umaña. 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 She reports having a 10yo son, Jean, who lives with her sister in [place]. Objective - Appearance Appearance: Obese Dysmorphic Features: Yes Hygiene: Normal Grooming: Fairly Well Kept - Behavior Psychomotor Activities: Normal Exhibits Abnormal Movement: No - Attitude and Relatedness Attitude and Relatedness: Psychotically Related Eye Contact: Good - Speech Quality: Unpressured Latencies: Short Quantity: Terse - Mood Patient's Decription of Mood: no answer - Affect Observed Affect: Tense - Thought Process Patient's Thought Process: Disorganized, Impoverished Thought Content: Yes Paranoid Ideation, No Passive Wish, No Suicidal Planning, No Homicidal Ideation - Sensorium Experiencing Hallucinations: No, Sensorium is Clear - denies Type of Hallucinations: Visual: No, Auditory: No, Command: No - Level of Consciousness Level of Consciousness: Alert Orientation: Yes Intact, Yes Orientated to Time, Yes Orientated to Place, Yes Orientated to Person - Impulse Control Impulse Control: Impaired - Insight and Judgement Insight and Judgement: Impaired - Group Participation Particating in Group Activities: No - Medication Management Medication Management Adherence: Yes Assessment - Assessment Merits Inpatient Hospitalization: For Immediate Safety, For Stabilization Inpatient DSM-V Dx: F31.2 Clinical Impression: 27yo white female with history of bipolar disorder who presented to ED with significant other due to paranoid and disorganized behavior. Patient presents as floridly psychotic and unable to care for herself. She merits hospitalization for immediate safety and stabilization. Plan - Plan Treatment Plan: Name: JOSE DIAS Birthdate: 1990 [id number] continue acute intensive psychiatric treatment. titrate medications and monitor for mood and thought content. discharge planning to include family and outpatient providers with patient consent. Continued Medication Management: Start Medication Medications: Current Medications Acetaminophen (Tylenol Tab*) 650 mg PO Q4H PRN PRN Reason: PAIN Al Hydrox/Mg Hydrox/Simethicone (Maalox Plus*) 30 ml PO Q4H PRN PRN Reason: INDIGESTION Device (Nicotine Mouth Piece*) 1 each INH .USE WITH NICOTROL PRN PRN Reason: CRAVING Last Admin: 11/17/17 13:09 Dose: 1 each Diphenhydramine HCl (Benadryl Po*) 50 mg PO Q6H PRN PRN Reason: AGITATION/INSOMNIA Last Admin: 11/17/17 03:19 Dose: 50 mg [place] Carbonate ([place] Carbonate Tab*) 300 mg PO BID [facility] Last Admin: 11/17/17 10:29 Dose: 300 mg Multivitamins (Theragran Tab*) 1 tab PO DAILY [facility] Last Admin: 11/17/17 10:29 Dose: 1 tab Nicotine (Nicotine Inhaler*) 10 mg INH Q2H PRN PRN Reason: CRAVING Last Admin: 11/17/17 13:09 Dose: 10 mg Nicotine (Nicotine Patch 21 Mg/24 Hr*) 1 patch TRANSDERM DAILY [facility] Last Admin: 11/17/17 13:09 Dose: 1 patch Nicotine Polacrilex (Nicotine Gum*) 2 mg PO Q2H PRN PRN Reason: CRAVING Pharmacy Profile Note (Nicotine Patch Removal Note*) 1 note FOLLOW UP 2100 [facility] Quetiapine Fumarate (Seroquel Tab*) 100 mg PO BEDTIME [facility] Last Admin: 11/16/17 20:23 Dose: 100 mg - Discharge Plan Discharge Plan: Outpatient Follow Up Outpatient Program: [facility]
[2017-11-17] MEDS: Nicotine Patch Removal NOTE FOLLOW UP SCH (19:54)
[2017-11-17] MEDS ORDERED: QUEtiapine TAB* 100 MG PO SCH (21:00)
[2017-11-18] MEDS: Nicotine PATCH 21 MG/24 HR* PATCH TRANSDERM SCH (08:55)
[2017-11-18] MEDS: Lithium Carbonate TAB* 300 MG PO SCH ×2 (08:56→21:53)
[2017-11-18] MEDS: Vitamin THERAPEUTIC TAB PO SCH (08:56)
[2017-11-18] MEDS: Ziprasidone * 20 MG CAP (generic Geodon) PO SCH ×2 (11:31→21:53)
[2017-11-18 12:50] LABS: Urine Appearance Cloudy; Urine Blood 3+ (Negative); Urine Color Amber; Urine Ketones Negative (Negative); Urine Protein Negative (Negative); Urine Red Blood Cell 3+(>10/hpf) (Absent); Urine Specific Gravity 1.023 (1.010-1.030); Urine Urobilinogen Negative (Negative); Urine White Blood Cell 3+(>20/hpf) (Absent)
--- NOTE | 2017-11-18 13:58 | PN ---
Subjective - Subjective Date of Service: 11/18/17 Service Type: [id number] Hosp care 25 min moderate complexity Subjective: Patient continues to be disorganized, guarded and intrusive. She was changed to a private room due to being disruptive and not redirectable. She is a poor historian and gives inconsistent information. Patient notified of plan to obtain EKG, UA and blood draw in am. EKG done, NSR. Will start ziprasidone. UA done is ED was remarkable but patient denies symptoms. New clean catch/ midstream specimen obtained and sent. No further intervention. Objective - Appearance Appearance: Obese Dysmorphic Features: No Hygiene: Normal Grooming: Well Kept - Behavior Psychomotor Activities: Abnormal-Decreased - psychomotor retardation - Attitude and Relatedness Attitude and Relatedness: Needy Eye Contact: Good - Speech Quality: Unpressured Latencies: Short Quantity: Terse - whispers - Mood Patient's Decription of Mood: "Fine" - Affect Observed Affect: Expansive Affect Consistent with: Euphoria - Thought Process Patient's Thought Process: Disorganized, Impoverished Thought Content: Yes Paranoid Ideation, No Passive Wish, No Suicidal Planning, No Homicidal Ideation - Sensorium Experiencing Hallucinations: No, Sensorium is Clear - denies Type of Hallucinations: Visual: No, Auditory: No, Command: No - Level of Consciousness Level of Consciousness: Alert Orientation: Yes Intact, Yes Orientated to Time, Yes Orientated to Place, Yes Orientated to Person - Impulse Control Impulse Control: Impaired - Insight and Judgement Insight and Judgement: Impaired - Group Participation Particating in Group Activities: No - Medication Management Medication Management Adherence: Yes Assessment - Assessment Merits Inpatient Hospitalization: For Immediate Safety, For Stabilization, To Initiate Treatment Inpatient DSM-V Dx: F31.2 Clinical Impression: 27yo white female with history of bipolar disorder who presented to ED with significant other due to paranoid and disorganized behavior. Patient presents as floridly psychotic and unable to care for herself. She merits hospitalization for immediate safety and stabilization. Plan - Plan Treatment Plan: Name: JOSE DIAS Birthdate: 1990 [id number] continue acute intensive psychiatric treatment. DC quetiapine. obtained EKG. Start ziprasidone. obtain lithium trough in am. discharge planning to include family and outpatient providers with patient consent. Continued Medication Management: Different Medication Medications: Current Medications Acetaminophen (Tylenol Tab*) 650 mg PO Q4H PRN PRN Reason: PAIN Al Hydrox/Mg Hydrox/Simethicone (Maalox Plus*) 30 ml PO Q4H PRN PRN Reason: INDIGESTION Device (Nicotine Mouth Piece*) 1 each INH .USE WITH NICOTROL PRN PRN Reason: CRAVING Last Admin: 11/17/17 13:09 Dose: 1 each Diphenhydramine HCl (Benadryl Po*) 50 mg PO Q6H PRN PRN Reason: AGITATION/INSOMNIA Last Admin: 11/17/17 19:52 Dose: 50 mg [place] Carbonate ([place] Carbonate Tab*) 300 mg PO BID [facility] Last Admin: 11/18/17 08:56 Dose: 300 mg Multivitamins (Theragran Tab*) 1 tab PO DAILY [facility] Last Admin: 11/18/17 08:56 Dose: 1 tab Nicotine (Nicotine Inhaler*) 10 mg INH Q2H PRN PRN Reason: CRAVING Last Admin: 11/17/17 13:09 Dose: 10 mg Nicotine (Nicotine Patch 21 Mg/24 Hr*) 1 patch TRANSDERM DAILY [facility] Last Admin: 11/18/17 08:55 Dose: 1 patch Nicotine Polacrilex (Nicotine Gum*) 2 mg PO Q2H PRN PRN Reason: CRAVING Pharmacy Profile Note (Nicotine Patch Removal Note*) 1 note FOLLOW UP 2099 [facility] Last Admin: 11/17/17 19:54 Dose: Not Given Ziprasidone (Geodon (Generic) *) 40 mg PO BID [facility] Last Admin: 11/18/17 11:31 Dose: 40 mg - Discharge Plan Discharge Plan: Outpatient Follow Up Outpatient Program: [facility]
[2017-11-18] MEDS: Acetaminophen TAB* 325 MG PO PRN (21:57)
[2017-11-18] MEDS: Nicotine Patch Removal NOTE FOLLOW UP SCH (22:04)
[2017-11-18] MEDS: Nicotine GUM* 2 MG PO PRN (22:38)
[2017-11-19 07:52] LABS: ABS Basophils 0.1 10^3/ul (0-0.2); ABS Eosinophils 0.3 10^3/ul (0-0.6); ABS Lymphocytes 3.5 10^3/ul (1.0-4.8); ABS Monocytes 0.8 10^3/ul (0-0.8); ABS Neutrophils 5.9 10^3/ul (1.5-7.7); ABS Nucleated RBC 0 10^3/ul; Eosinophil % 3.3 % (0-6); Hematocrit 45 % (35-47); Hemoglobin 15.8 g/dl (12.0-16.0); Lymphocyte % 33.1 % (25-47); Mean Corpuscular HGB Conc 35 g/dl (31-36); Mean Corpuscular Hemoglobin 31 pg (27-31); Mean Corpuscular Volume 89 fL (80-97); Mean Platelet Volume 9.1 um3 (7.4-10.4); Nucleated Red Blood Cells % 0; Platelet Count 321 10^3/ul (150-450); Red Blood Count 5.09 10^6/ul (4.00-5.40); Red Cell Distribution Width 13 % (10.5-15); White Blood Count 10.6 10^3/ul (3.5-10.8)
[2017-11-19] MEDS: Nicotine PATCH 21 MG/24 HR* PATCH TRANSDERM SCH (10:22)
[2017-11-19] MEDS: Ziprasidone * 20 MG CAP (generic Geodon) PO SCH ×3 (10:23→17:34)
[2017-11-19] MEDS: Lithium Carbonate TAB* 300 MG PO SCH ×3 (10:23→20:41)
[2017-11-19] MEDS: Vitamin THERAPEUTIC TAB PO SCH (10:23)
--- NOTE | 2017-11-19 10:51 | PN ---
Subjective - Subjective Date of Service: 11/19/17 Service Type: [id number] Hosp care 25 min moderate complexity Subjective: patient continues to be gravely disorganized, needing assistance with ADLs and meals. She presents as irritable and guarded. She is accepting medications and sleeping intermittently. Fire Control Mechanic received call from her sister, Angelita. We discussed diagnoses and treatment plan. She reports Arina has had multiple periods of rebecca since she was post- 10 years ago. She has not presented as psychotic. Angelita states that she currently has custody of Arina's 10 yo son due to Arina's substance use. Angelita validates that Arina has been in treatment in the past at [facility] and [place]. She states that the family was not aware until recently that Arina has not been taking psychiatric medications for two years. Fire Control Mechanic thanked Angelita for her information and assured her that family will be involved in discharge planning. Objective - Appearance Appearance: Obese Dysmorphic Features: No Hygiene: Normal Grooming: Well Kept - Behavior Psychomotor Activities: Abnormal-Decreased - psychomotor retardation Exhibits Abnormal Movement: Yes - Attitude and Relatedness Attitude and Relatedness: Psychotically Related Eye Contact: Fair - Speech Quality: Unpressured Latencies: Long Quantity: Terse - Mood Patient's Decription of Mood: no answer - Affect Observed Affect: Unvariable Affect Consistent with: Euthymia - Thought Process Patient's Thought Process: Disorganized, Tangential Thought Content: Yes Paranoid Ideation, No Passive Wish, No Suicidal Planning, No Homicidal Ideation - Sensorium Experiencing Hallucinations: No, Sensorium is Clear - denies AH/VH Type of Hallucinations: Visual: No, Auditory: No, Command: No - Level of Consciousness Level of Consciousness: Alert Orientation: Yes Intact, Yes Orientated to Time, Yes Orientated to Place, Yes Orientated to Person - Impulse Control Impulse Control: Impaired - Insight and Judgement Insight and Judgement: Impaired - Group Participation Particating in Group Activities: No - Medication Management Medication Management Adherence: Yes Assessment - Assessment Merits Inpatient Hospitalization: For Immediate Safety, For Stabilization, To Initiate Treatment, Consolidate Improvements Inpatient DSM-V Dx: F31.2 Clinical Impression: 27yo white female with history of bipolar disorder who presented to ED with significant other due to paranoid and disorganized behavior. Patient presents as floridly psychotic and unable to care for herself. She merits hospitalization for immediate safety and stabilization. Plan - Plan Treatment Plan: Name: ARINA DIAS Birthdate: 1990 [id number] continue acute intensive psychiatric treatment. increase lithium and add thorazine 50mg q4h prn anxiety/agitation. continue ziprasidone. discharge planning to include family and outpatient providers with patient consent. Continued Medication Management: Start Medication Medications: Current Medications Acetaminophen (Tylenol Tab*) 650 mg PO Q4H PRN PRN Reason: PAIN Last Admin: 11/18/17 21:57 Dose: 650 mg Al Hydrox/Mg Hydrox/Simethicone (Maalox Plus*) 30 ml PO Q4H PRN PRN Reason: INDIGESTION Device (Nicotine Mouth Piece*) 1 each INH .USE WITH NICOTROL PRN PRN Reason: CRAVING Last Admin: 11/17/17 13:09 Dose: 1 each Diphenhydramine HCl (Benadryl Po*) 50 mg PO Q6H PRN PRN Reason: AGITATION/INSOMNIA Last Admin: 11/19/17 01:00 Dose: 50 mg [place] Carbonate ([place] Carbonate Tab*) 300 mg PO TID [facility] Multivitamins (Theragran Tab*) 1 tab PO DAILY [facility] Last Admin: 11/19/17 10:23 Dose: 1 tab Nicotine (Nicotine Inhaler*) 10 mg INH Q2H PRN PRN Reason: CRAVING Last Admin: 11/17/17 13:09 Dose: 10 mg Nicotine (Nicotine Patch 21 Mg/24 Hr*) 1 patch TRANSDERM DAILY [facility] Last Admin: 11/19/17 10:22 Dose: 1 patch Nicotine Polacrilex (Nicotine Gum*) 2 mg PO Q2H PRN PRN Reason: CRAVING Last Admin: 11/18/17 22:38 Dose: 2 mg Pharmacy Profile Note (Nicotine Patch Removal Note*) 1 note FOLLOW UP 2100 [facility] Last Admin: 11/18/17 22:04 Dose: 1 note Ziprasidone (Geodon (Generic) *) 40 mg PO BID [facility] Last Admin: 11/19/17 10:23 Dose: 40 mg - Discharge Plan Discharge Plan: Outpatient Follow Up
[2017-11-19] MEDS: Mouth Piece, Nicotine* 1 EACH CARTRIDGE INH PRN (18:03)
[2017-11-19] MEDS: Nicotine Inhaler* 10 MG AMP INH PRN (18:03)
[2017-11-19] MEDS: Nicotine Patch Removal NOTE FOLLOW UP SCH (20:40)
[2017-11-19] MEDS: Nicotine GUM* 2 MG PO PRN (20:42)
[2017-11-20] MEDS: Ziprasidone * 20 MG CAP (generic Geodon) PO SCH ×2 (07:00→17:20)
[2017-11-20] MEDS: Nicotine PATCH 21 MG/24 HR* PATCH TRANSDERM SCH (07:00)
[2017-11-20] MEDS: Lithium Carbonate TAB* 300 MG PO SCH ×3 (07:00→21:10)
[2017-11-20] MEDS: Vitamin THERAPEUTIC TAB PO SCH (07:30)
[2017-11-20] MEDS: Nicotine GUM* 2 MG PO PRN (10:35)
--- NOTE | 2017-11-20 13:49 | PN ---
Subjective - Subjective Date of Service: 11/20/17 Service Type: [id number] Hosp care 15 min low complexity Subjective: Minimal change in status. Patient presents as regressed and unable to perform simple tasks. She is seclusive to her room, napping often. She is invited to attend groups but is not yet able to participate. Will increase ziprasidone. Objective - Appearance Appearance: Obese Dysmorphic Features: No Hygiene: Normal Grooming: Well Kept - Behavior Psychomotor Activities: Abnormal-Decreased - psychomotor retardation Exhibits Abnormal Movement: Yes - Attitude and Relatedness Attitude and Relatedness: Psychotically Related Eye Contact: Fair - Speech Quality: Unpressured Latencies: Normal Quantity: Terse - Mood Patient's Decription of Mood: mumbles incoherently - Affect Observed Affect: Unvariable Affect Consistent with: Euphoria - Thought Process Patient's Thought Process: Disorganized, Impoverished Thought Content: Yes Paranoid Ideation, No Passive Wish, No Suicidal Planning, No Homicidal Ideation - Sensorium Experiencing Hallucinations: No, Sensorium is Clear Type of Hallucinations: Visual: No, Auditory: No, Command: No - Level of Consciousness Level of Consciousness: Alert Orientation: Yes Intact, Yes Orientated to Time, Yes Orientated to Place, Yes Orientated to Person - Impulse Control Impulse Control: Impaired - Insight and Judgement Insight and Judgement: Impaired - Group Participation Particating in Group Activities: No - Medication Management Medication Management Adherence: Yes Assessment - Assessment Merits Inpatient Hospitalization: For Immediate Safety, For Stabilization, To Initiate Treatment Inpatient DSM-V Dx: F31.2 - bipolar I d/o with psychotic features Clinical Impression: 27yo white female with history of bipolar disorder who presented to ED with significant other due to paranoid and disorganized behavior. Patient presents as floridly psychotic and unable to care for herself. She merits hospitalization for immediate safety and stabilization. Plan - Plan Treatment Plan: Name: JOSE DIAS Birthdate: 1990 [id number] continue acute intensive psychiatric treatment. increase ziprasidone to 60mg BID, continue other medications. discharge planning to include family and outpatient providers with patient consent. consider referral to [facility] if no improvement. Continued Medication Management: Different Medication Medications: Current Medications Acetaminophen (Tylenol Tab*) 650 mg PO Q4H PRN PRN Reason: PAIN Last Admin: 11/18/17 21:57 Dose: 650 mg Al Hydrox/Mg Hydrox/Simethicone (Maalox Plus*) 30 ml PO Q4H PRN PRN Reason: INDIGESTION Chlorpromazine HCl (Thorazine Tab*) 50 mg PO Q4H PRN PRN Reason: anxiety/agitation Device (Nicotine Mouth Piece*) 1 each INH .USE WITH NICOTROL PRN PRN Reason: CRAVING Last Admin: 11/19/17 18:03 Dose: 1 each Diphenhydramine HCl (Benadryl Po*) 50 mg PO Q6H PRN PRN Reason: AGITATION/INSOMNIA Last Admin: 11/19/17 01:00 Dose: 50 mg [place] Carbonate ([place] Carbonate Tab*) 300 mg PO TID [facility] Last Admin: 11/20/17 07:00 Dose: 300 mg Multivitamins (Theragran Tab*) 1 tab PO DAILY [facility] Last Admin: 11/20/17 07:30 Dose: 1 tab Nicotine (Nicotine Inhaler*) 10 mg INH Q2H PRN PRN Reason: CRAVING Last Admin: 11/19/17 18:03 Dose: 10 mg Nicotine (Nicotine Patch 21 Mg/24 Hr*) 1 patch TRANSDERM DAILY [facility] Last Admin: 11/20/17 07:00 Dose: 1 patch Nicotine Polacrilex (Nicotine Gum*) 2 mg PO Q2H PRN PRN Reason: CRAVING Last Admin: 11/20/17 10:35 Dose: 2 mg Pharmacy Profile Note (Nicotine Patch Removal Note*) 1 note FOLLOW UP 2100 [facility] Last Admin: 11/19/17 20:40 Dose: 1 note Ziprasidone (Geodon (Generic) *) 60 mg PO 0800,1700 [facility] - Discharge Plan Discharge Plan: Consider Longer Term Tx
[2017-11-20] MEDS: Nicotine Patch Removal NOTE FOLLOW UP SCH (21:11)
[2017-11-21] MEDS: Lithium Carbonate TAB* 300 MG PO SCH ×3 (10:00→21:32)
[2017-11-21] MEDS: Vitamin THERAPEUTIC TAB PO SCH (10:00)
[2017-11-21] MEDS: Nicotine PATCH 21 MG/24 HR* PATCH TRANSDERM SCH (10:00)
[2017-11-21] MEDS: Ziprasidone * 20 MG CAP (generic Geodon) PO SCH ×2 (10:00→17:29)
--- NOTE | 2017-11-21 15:05 | PN ---
Subjective - Subjective Date of Service: 11/21/17 Service Type: 32293 Hosp care 25 min moderate complexity Subjective: Patient presents as flat with prominent latencies. She continues to need assistance with ADLs and simple tasks. She is taking medications and cooperative with staff. She is primarily seclusive to her room and sleeps often. This is likely due to titration of medications. When she is awake, she is regressed and needy. Her family have been present during visiting hours and noted to be supportive. Objective - Appearance Appearance: Obese Dysmorphic Features: No Hygiene: Normal Grooming: Well Kept - Behavior Psychomotor Activities: Abnormal-Decreased - psychomotor retardation Exhibits Abnormal Movement: Yes - Attitude and Relatedness Attitude and Relatedness: Needy Eye Contact: Good - Speech Quality: Unpressured Latencies: Long Quantity: Terse - Mood Patient's Decription of Mood: "Okay" - Affect Observed Affect: Unvariable Affect Consistent with: Dysphoria - Thought Process Patient's Thought Process: Disorganized, Impoverished Thought Content: Yes Paranoid Ideation, No Passive Wish, No Suicidal Planning, No Homicidal Ideation - Sensorium Experiencing Hallucinations: No, Sensorium is Clear - denies - Level of Consciousness Level of Consciousness: Alert Orientation: Yes Orientated to Person, No Intact, No Orientated to Time, No Orientated to Place - Impulse Control Impulse Control: Impaired - Insight and Judgement Insight and Judgement: Impaired - Group Participation Particating in Group Activities: No - Medication Management Medication Management Adherence: Yes Assessment - Assessment Inpatient DSM-V Dx: F31.2 - bipolar I d/o with psychotic features Clinical Impression: 27yo white female with history of bipolar disorder who presented to ED with significant other due to paranoid and disorganized behavior. Patient presents as floridly psychotic and unable to care for herself. She merits hospitalization for immediate safety and stabilization. Plan - Plan Treatment Plan: Name: JOSE DIAS Birthdate: 1990 [id number] continue acute intensive psychiatric treatment. increase ziprasidone to 80mg BID, increase hs dose of lithium to 450mg. continue other medications. obtain CT of brain. obtain lithium trough on 11/23. discharge planning to include family and outpatient providers with patient consent. consider referral to [facility] if no improvement. Continued Medication Management: Start Medication Medications: Current Medications Acetaminophen (Tylenol Tab*) 650 mg PO Q4H PRN PRN Reason: PAIN Last Admin: 11/18/17 21:57 Dose: 650 mg Al Hydrox/Mg Hydrox/Simethicone (Maalox Plus*) 30 ml PO Q4H PRN PRN Reason: INDIGESTION Chlorpromazine HCl (Thorazine Tab*) 50 mg PO Q4H PRN PRN Reason: anxiety/agitation Device (Nicotine Mouth Piece*) 1 each INH .USE WITH NICOTROL PRN PRN Reason: CRAVING Last Admin: 11/19/17 18:03 Dose: 1 each Diphenhydramine HCl (Benadryl Po*) 50 mg PO Q6H PRN PRN Reason: AGITATION/INSOMNIA Last Admin: 11/19/17 01:00 Dose: 50 mg [place] Carbonate ([place] Carbonate Tab*) 450 mg PO BEDTIME [facility] [place] Carbonate ([place] Carbonate Tab*) 300 mg PO QAM [facility] Multivitamins (Theragran Tab*) 1 tab PO DAILY [facility] Last Admin: 11/21/17 10:00 Dose: 1 tab Nicotine (Nicotine Inhaler*) 10 mg INH Q2H PRN PRN Reason: CRAVING Last Admin: 11/19/17 18:03 Dose: 10 mg Nicotine (Nicotine Patch 21 Mg/24 Hr*) 1 patch TRANSDERM DAILY [facility] Last Admin: 11/21/17 10:00 Dose: 1 patch Nicotine Polacrilex (Nicotine Gum*) 2 mg PO Q2H PRN PRN Reason: CRAVING Last Admin: 11/20/17 10:35 Dose: 2 mg Pharmacy Profile Note (Nicotine Patch Removal Note*) 1 note FOLLOW UP 2100 [facility] Last Admin: 11/20/17 21:11 Dose: 1 note Ziprasidone (Geodon (Generic) *) 60 mg PO 0800,1700 [facility] Stop: 11/22/17 18:00 Last Admin: 11/21/17 10:00 Dose: 60 mg Ziprasidone (Geodon (Generic) *) 80 mg PO BID [facility] - Discharge Plan Discharge Plan: Outpatient Follow Up
--- NOTE | 2017-11-21 17:58 | RAD ---
EXAM: CT Head Without Intravenous Contrast CLINICAL HISTORY: 27 years old, female; Signs and symptoms; Psychosis or psychotic disorder; Unspecified TECHNIQUE: Axial computed tomography images of the head/brain without intravenous contrast. All CT scans at this facility use at least one of these dose optimization techniques: automated exposure control; mA and/or kV adjustment per patient size (includes targeted exams where dose is matched to clinical indication); or iterative reconstruction. COMPARISON: No relevant prior studies available. FINDINGS: Brain: Slight asymmetry to the lateral ventricles, likely anatomic. No intracranial hemorrhage or extra-axial fluid collection. No evidence of mass effect or midline shift. Knight-white matter differentiation is normal. Bones/joints: Unremarkable. No acute fracture. Soft tissues: Unremarkable. Sinuses: Unremarkable as visualized. No acute sinusitis. Mastoid air cells: Unremarkable as visualized. No mastoid effusion. IMPRESSION: No acute intracranial pathology.
[2017-11-21] MEDS: Nicotine Patch Removal NOTE FOLLOW UP SCH (21:59)
[2017-11-22] MEDS: Nicotine PATCH 21 MG/24 HR* PATCH TRANSDERM SCH (09:09)
[2017-11-22] MEDS: Vitamin THERAPEUTIC TAB PO SCH (09:10)
[2017-11-22] MEDS: Acetaminophen TAB* 325 MG PO PRN ×2 (09:10→16:20)
[2017-11-22] MEDS: Ziprasidone * 20 MG CAP (generic Geodon) PO SCH ×2 (09:10→16:21)
[2017-11-22] MEDS: Lithium Carbonate TAB* 300 MG PO SCH ×2 (09:10→22:51)
[2017-11-22] MEDS: chlorproMAZINE TAB* 50 MG PO PRN (17:37)
[2017-11-22] MEDS: Nicotine Patch Removal NOTE FOLLOW UP SCH (22:53)
[2017-11-23 08:05] VITALS: BP 137/83
[2017-11-23] MEDS: Nicotine PATCH 21 MG/24 HR* PATCH TRANSDERM SCH (09:31)
[2017-11-23] MEDS: Ziprasidone * 20 MG CAP (generic Geodon) PO SCH ×3 (09:32→19:28)
[2017-11-23] MEDS: Lithium Carbonate TAB* 300 MG PO SCH ×2 (09:32→19:29)
[2017-11-23] MEDS: Vitamin THERAPEUTIC TAB PO SCH (09:32)
[2017-11-23] MEDS: Mouth Piece, Nicotine* 1 EACH CARTRIDGE INH PRN (10:02)
[2017-11-23] MEDS: Nicotine Inhaler* 10 MG AMP INH PRN (10:02)
[2017-11-23] MEDS: chlorproMAZINE TAB* 50 MG PO PRN ×2 (11:17→19:28)
[2017-11-23] MEDS: Acetaminophen TAB* 325 MG PO PRN (15:04)
[2017-11-23] MEDS: Nicotine GUM* 2 MG PO PRN (16:43)
[2017-11-23] MEDS: Nicotine Patch Removal NOTE FOLLOW UP SCH (19:31)
[2017-11-24] MEDS: Ziprasidone * 20 MG CAP (generic Geodon) PO SCH (08:20)
[2017-11-24] MEDS: Nicotine PATCH 21 MG/24 HR* PATCH TRANSDERM SCH (08:20)
[2017-11-24] MEDS: Lithium Carbonate TAB* 300 MG PO SCH (08:20)
[2017-11-24] MEDS: Vitamin THERAPEUTIC TAB PO SCH (08:20)
[2017-11-24] MEDS: Acetaminophen TAB* 325 MG PO PRN (10:28)
[2017-11-24] MEDS ORDERED: Mouth Piece, Nicotine* 1 EACH CARTRIDGE ONE (12:24)
[2017-11-24] MEDS: Nicotine Inhaler* 10 MG AMP INH PRN (12:26)
[2017-11-24] MEDS: Nicotine GUM* 2 MG PO PRN (13:09)
--- NOTE | 2017-11-25 11:12 | DS ---
Subjective - Subjective Service Types: 30[address] [facility] Day Mgmt complex over 30 min Discharge Date: 11/24/17 Subjective: Patient presents as well-related and drastically improved over the weekend. She is no longer voicing paranoid ideation and able to perform her own ADLs without assistance or prompting. Patient has been medication compliant, as well as utilized thorazine prn for agitation. Over the past weekend, the patient was increasingly independent and appropriately interactive with staff and peers. Patient's mother, sister and boyfriend were contacted via phone or in person to discuss discharge and safety planning. Objective - Appearance Appearance: Obese Dysmorphic Features: No Hygiene: Normal Grooming: Well Kept - Behavior Psychomotor Activities: Normal Exhibits Abnormal Movement: No - Attitude and Relatedness Attitude and Relatedness: Cooperative Eye Contact: Good - Speech Quality: Unpressured Latencies: Normal Quantity: Appropriate - Mood Patient's Decription of Mood: "Good" - Affect Observed Affect: Good Affect Consistent with: Euthymia - Thought Process Patient's Thought Process: Coherent, Goal Directed Thought Content: No Passive Wish, No Suicidal Planning, No Homicidal Ideation, No Paranoid Ideation - Sensorium Experiencing Hallucinations: No, Sensorium is Clear Type of Hallucinations: Visual: No, Auditory: No, Command: No - Level of Consciousness Level of Consciousness: Alert Orientation: Yes Intact, Yes Orientated to Time, Yes Orientated to Place, Yes Orientated to Person - Impulse Control Impulse Control: Intact - Insight and Judgement Insight and Judgement: Good - Group Participation Particating in Group Activities: Yes - Medication Management Medication Management Adherence: Yes Treatment Course & Assessment Clinical Course & Impression: 27yo white female with history of bipolar disorder who presented to ED with significant other due to paranoid and disorganized behavior. Patient presented as floridly psychotic and unable to care for herself. She was admitted under 9.39 status and started on quetiapine at bedtime. 11/17/17: Patient is difficult to engage in conversation. She presents as disorganized, guarded and irritable. She requests nicotine replacement then is leery of nursing staff administering it. Patient states that her boyfriend no longer wants her at their home in [place] "because I was doing drugs." She states she last smoked crack cocaine approx 1 month ago and denies other substance use. (Her urine tox was negative). She states she was a client of [facility] in [place] and saw Ana Umaña. 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 She reports having a 10yo son, Jean, who lives with her sister in [place]. Patient was started on lithium titration. 11/18: Patient continues to be disorganized, guarded and intrusive. She was changed to a private room due to being disruptive and not redirectable. She is a poor historian and gives inconsistent information. Patient notified of plan to obtain EKG, UA and blood draw in am. EKG done, NSR. Will start ziprasidone. UA done is ED was remarkable but patient denies symptoms. New clean catch/ midstream specimen obtained and sent. No further intervention. 11/19: patient continues to be gravely disorganized, needing assistance with ADLs and meals. She presents as irritable and guarded. She is accepting medications and sleeping intermittently. Home Stager received call from her sister, Angelita. We discussed diagnoses and treatment plan. She reports Arina has had multiple periods of rebecca since she was post- 10 years ago. She has not presented as psychotic. Angelita states that she currently has custody of Arina's 10 yo son due to Arina's substance use. Angelita validates that Arina has been in treatment in the past at [facility] and [facility]. She states that the family was not aware until recently that Arina has not been taking psychiatric medications for two years. Home Stager thanked Angelita for her information and assured her that family will be involved in discharge planning. 11/21: Patient presents as flat with prominent latencies. She continues to need assistance with ADLs and simple tasks. She is taking medications and cooperative with staff. She is primarily seclusive to her room and sleeps often. This is likely due to titration of medications. When she is awake, she is regressed and needy. Her family have been present during visiting hours and noted to be supportive. 11/24: Patient noted to have drastically improved presentation over weekend. She tolerated titration of medications and presents as well-related. She expressed eagerness for discharge and family were present, supportive. Patient agreed to continue outpatient treatment with PCP and [facility]. Merits Inpatient Hospitalization: No Clear for Discharge: Adequate Clinical Respons, Acceptable Safety Profile Inpatient DSM-V Dx: F31.2 - bipolar I d/o with psychotic features Discharge Planning - Discharge Planning Discharge Plan: Outpatient Follow Up Outpatient Program: [facility] Recommendations for Continuing Care: Medication Management, Psychotherapy, Routine Metabolic Monitoring, Primary Care Followup Medications: Home Medications Medication Instructions Recorded Confirmed Type Naproxen [Naproxen 500 mg tab] 500 mg PO BID #20 tablet 10/17/17 11/14/17 Rx Ibuprofen TAB* [Motrin TAB* 400 MG] 400 mg PO Q6H PRN 11/14/17 11/14/17 History Needles Carbonate TAB* 150 mg PO BEDTIME #30 tab 11/24/17 Rx Needles Carbonate TAB* 300 mg PO BID #60 tab 11/24/17 Rx Ziprasidone * [Geodon (generic) *] 80 mg PO BID WITH MEALS #240 cap 11/24/17 Rx Discharge Planning: Prescriptions provided for discharge [X] Yes [] No Follow up care details as per social work arrangements. Patient response to discharge plan: [X] eager for discharge [X] agreeable with discharge plan [] ambivalent about discharge [] disagrees with discharge today
== END 2017-11-24 16:21 | disposition home or self-care (01) | DRG 753 ==
LOC: ED 20:56 → BSU 11-15 14:55
PROVIDERS: ADMIT Psychiatry & Neurology Psychiatry; ATTEND Psychiatry & Neurology Psychiatry
DX: F31.2 Bipolar disorder, current episode manic severe with psychotic features (principal); Z68.42 Body mass index [BMI] 45.0-49.9, adult; E66.01 Morbid (severe) obesity due to excess calories; F17.210 Nicotine dependence, cigarettes, uncomplicated; Z81.8 Family history of other mental and behavioral disorders
CPT/HCPCS: 36415; 70450; 71046; 80053; 80061; 80178; 80307; 80320; 80329; 81003; 81015; 83036; 84443; 85025; 87086; 93005; 99222; 99231; 99232; 99238; 99284; A9270-GY; G0480

== ENCOUNTER 2017-12-17 16:28 | Emergency (ER) | payer MEDICAID ==
[2017-12-17 16:52] VITALS: BP 140/78
--- OUTSIDE RECORDS SUMMARY | 2017-12-17 17:18 | XMS REPORT ---
:1990 External Reference #:[id number] Author Organization [facility] Address [address] [place] [address] [place] [address] Phone [phone] Care Team Providers Name Role Phone Otto Abebe M.D. Care Team Information Pharmacy Billing Adjudicator Unavailable Payers Type Date Identification Numbers Payment Provider Subscriber Commercial Effective: Policy Number: Heath Sanchez 2007 [id number] Expires: 2017 PayID: [id number] [address] [facility] Expires: 2017 Policy Number: [id number] Medicaid Arina Sanchez Group Name: [address] PayID: [id number] [place] [address] Commercial Policy Number: [id number] Heath Sanchez PayID: [id number] [address] [facility] Policy Number: [id number] Medicaid Arina Sanchez Group Name: [address] PayID: [id number] [place] [address] Problems Description No Information Family History Date Family Member(s) Problem(s) Comments General bipolar General anxiety Social History Type Date Description Comments 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 [employer] ETOH Use Denies alcohol use Smoking Heavy tobacco smoker (more than 10 cigarettes/day) Allergies, Adverse Reactions, Alerts Date Description Reaction Status Severity Comments 10/21/2017 Paxil active 10/21/2017 Prozac active 10/21/2017 Zoloft active 10/21/2017 Lexapro active 10/21/2017 Ssri's active 11/25/2011 NKDA inactive Medications Medication Date Status Form Strength Qnty SIG Indications Ordering Provider Acetaminophen 12/02/ Active Tablets 500mg 120ta 2 tabs by M54.5 Taylor Extra Strength 2018 bs mouth Senner, three DO times a day as needed Isanti Carbonate / Active Capsules 300mg 1 by mouth Unknown 0000 twice daily Isanti Carbonate / Active Capsules 150mg one at Unknown 0000 night along with 300 mg capsule Ziprasidone HCL / Active Capsules 80mg one twice Unknown 0000 daily with a meal No Active 12/02/ Hx Unknown Medications 2018 - 2017 Cyclobenzaprine 11/04/ Hx Tablets 5mg 90tab 1 tab M54.5 Taylor HCL 2018 - s three Senner, 12/01/ times a DO 2017 day as needed Voltaren 11/04/ Hx Gel 1% 100gm 1 teaspoon M54.5 Taylor 2018 - to back Senner, 12/01/ four times DO 2018 a day Naproxen 11/04/ Hx Tablets 500mg 60tab 1 tab M54.5 Taylor 2018 - s twice a Senner, 12/01/ day as DO 2018 needed Buspirone HCL 10/21/ Hx Tablets 10mg 60tab 1 tab in F41.1 Taylro 2018 - s the Senner, 12/01/ morning DO 2017 and 2 tabs at night Abilify / Hx Tablets 5mg 30tab 1 po qd White, 0000 - s Vanesa 2017 Wellbutrin SR / Hx Tablets ER 150mg 60tab 1 po bid White, 0000 - 12HR s Vanesa 2017 Ibuprofen / Hx Tablets 600mg 90tab tid Shawanda, 0000 - s Vanesa 2018 Multi Complete / Hx Capsules daily Unknown 0000 - 2017 Cyclobenzaprine / Hx Tablets 5mg currently Unknown HCL 0000 - not 12/01/ taking- 2018 take one tablet by mouth every 8 hours prn. Vital Signs Date Vital Result Comment 12/02/2017 Height 61 inches 5'1" Weight 253.50 lb Heart Rate 88 /min BP Systolic Sitting 110 mmHg adult cuff left arm BP Diastolic Sitting 76 mmHg adult cuff left arm Body Temperature 99.1 F O2 % BldC Oximetry 98 % BMI (Body Mass Index) 47.9 kg/m2 Last Menstrual Period [id number] 11/04/2017 Weight 260.00 lb Heart Rate 84 /min BP Systolic 132 mmHg BP Diastolic 86 mmHg Respiratory Rate 18 /min Body Temperature 98.2 F Pain Level 8 O2 % BldC Oximetry 99 % 10/21/2017 Weight 262.00 lb Heart Rate 80 [...] Location Provider CPT E/M Dx Office Visit 12/02/2017 [facility] [place] [address] F31.74 11:30a [facility] M54.5 Office Visit 11/04/2017 10:30a [facility] [place] [address] M54.5 [facility] F41.1 Office Visit 10/21/2017 1:00p [facility] [place] [address] M54.5 [facility] F41.1 Office Visit 11/29/2011 10:00a [facility], [address] 845.00 C.M.A. MSavi Office Visit 11/25/2011 3:45p [facility] Otto Abebe M.D. 82139 719.46 AT [place] Plan of Care Future Appointment(s):01/01/2018 2:30 pm - Taylor Liu DO at [facility]12/02/2017 - Taylor Liu DOF31.74 Bipolar disorder , in full remis, most recent episode vdxynD62.5 Low back painNew Medication: Acetaminophen Extra Strength 500 mgNew Xrays:MRI Lumbar Spine W/ORecommendations :[facility] [phone] Come back in one month
--- OUTSIDE RECORDS SUMMARY | 2017-12-17 17:19 | XMS REPORT ---
:1990 External Reference #:[id number] Author Organization [facility] Address [address] [place] [address] Phone [phone] Care Team Providers Name Role Phone Patient's Choice Care Team Information Group Segment Consultant Unavailable Patient's Choice Primary Care Physician Unavailable Payers Type Date Identification Numbers Payment Provider Subscriber Commercial Effective: Policy Number: Heath Sanchez 2009 [id number] Expires: 2017 PayID: [id number] [address] [facility] Expires: 2017 Policy Number: [id number] Medicaid Arina Sanchez Group Name: [address] [facility] [address] PayID: [id number] [place] [address] Commercial Policy Number: [id number] Heath Sanchez PayID: [id number] [address] [facility] Policy Number: [id number] Medicaid Arina Rees Group Name: [address] 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 [employer] ETOH Use Denies alcohol use Smoking Heavy tobacco smoker (more than 10 cigarettes/day) Allergies, Adverse Reactions, Alerts Date Description Reaction Status Severity Comments 10/21/2017 Paxil active 10/21/2017 Prozac active 10/21/2017 Zoloft active 10/21/2017 Lexapro active 10/21/2017 Ssri's active 11/25/2011 NKDA inactive Medications Medication Date Status Form Strength Qnty SIG Indications Ordering Provider Cyclobenzaprine 11/04/ Active Tablets 5mg 90tab 1 tab M54.5 Taylor HCL 2018 s three Senner, times a DO day as needed Voltaren 11/04/ Active Gel 1% 100gm 1 teaspoon M54.5 Taylor 2017 to back Senner, four times DO a day Naproxen 11/04/ Active Tablets 500mg 60tab 1 tab M54.5 Taylor 2018 s twice a Senner, day as DO needed Buspirone HCL 10/21/ Active Tablets 10mg 60tab 1 tab in F41.1 Taylor 2017 s the Senner, morning DO and 2 tabs at night Ibuprofen / Active Tablets 600mg 90tab tid White, 0000 s MD Vanesa Multi Complete / Active Capsules daily Unknown 0000 Cyclobenzaprine / Active Tablets 5mg currently Unknown HCL 0000 not taking- take one tablet by mouth every 8 hours prn. 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 Otto Abebe M.D. 64270 719.46 AT [place] Plan of Care Future Appointment(s):12/02/2017 11:30 am - Taylor Liu DO at [facility]11/04/2017 - Taylor Liu, DOM54.5 Low back painNew Medication:Cyclobenzaprine HCL 5 mgVoltaren 1 %Naproxen 500 mgF41.1 Generalized anxiety disorderRecommendations:come back in a month
[2017-12-17] MEDS ORDERED: predniSONE TAB* 20 MG PO ONE (17:22)
[2017-12-17] MEDS ORDERED: diPHENhydraMINE LIQ* 12.5 MG/5 ML UDC PO ONE (17:22)
--- NOTE | 2017-12-17 17:25 | UC ---
Allergic Reaction HPI - HPI Summary HPI Summary: PT C/O AN ALLERGIC REACTION. BEGAN WITH ITCHING YESTERDAY THEN ABOUT 1PM TODAY GOT THE RASH. USED A NEW LAUNDRY DETERGENT JUST PRIOR TO THIS. NO SOB OR WHEEZING BUT LUNGS FELT A LITTLE TIGHT. NO CP. TOOK A HYDROXYZINE THIS AFTERNOON AND IT HAS HELPED. - History of Current Complaint Chief Complaint: UCAllergicReaction Stated Complaint: RASH Time Seen by Provider: 12/17/17 16:42 Hx Obtained From: Patient Hx Last Menstrual Period: 11/16/17 Onset/Duration: Gradual Onset Pain Intensity: 0 Associated Signs And Symptoms: Positive: Rash. Negative: Chest Pain, Cough Wheezing, Difficulty Breathing, Nausea - Allergies/Home Medications Allergies/Adverse Reactions: Allergies Allergy/AdvReac Type Severity Reaction Status Date / Time Gain laundry detergent Allergy Hives Uncoded 12/17/17 16:53 Home Medications: Home Medications Acetaminophen/Diphenhydramine [Sm Pain Reliever Pm Extra 25-500 mg] 2 tab PO TID 12/17/17 [History Confirmed 12/17/17] Multivitamin/Iron/Folic Acid [Centrum Adults Tablet] 1 each PO DAILY 12/17/17 [ History Confirmed 12/17/17] hydrOXYzine HCL TAB* [Atarax 10 MG TAB*] 10 mg PO TID PRN 12/17/17 [History Confirmed 12/17/17] PMH/Surg Hx/FS Hx/Imm Hx - Additional Past Medical History Additional PMH: ANXIETY, BIPOLAR, ELIU Other History Of: Negative For: HIV, Hepatitis B, Hepatitis C, Anticoagulant Therapy - Surgical History Surgical History: Yes Surgery Procedure, Year, and Place: , 2007, [facility] - Family History Known Family History: Positive: Hypertension, Diabetes, Other - BIPOLAR - Social History Occupation: Unemployed Lives: With Family Alcohol Use: None Substance Use Type: None Substance Use Comment - Amount & Last Used: no use in 2 weeks, states in an out pt tx center Smoking Status (MU): Heavy Every Day Tobacco Smoker Type: Cigarettes Amount Used/How Often: 1 PPD Length of Time of Smoking/Using Tobacco: since age 14 Have You Smoked in the Last Year: Yes Household Exposure Type: Cigarettes - Immunization History Most Recent Influenza Vaccination: unknown Most Recent Pneumonia Vaccination: N/A Vaccination Up to Date: Yes Review of Systems Constitutional: Negative Skin: Rash Eyes: Negative ENT: Negative Respiratory: Negative Cardiovascular: Negative Gastrointestinal: Negative Genitourinary: Negative Motor: Negative Neurovascular: Negative Musculoskeletal: Negative Neurological: Negative Psychological: Negative Is Patient Immunocompromised?: No All Other Systems Reviewed And Are Negative: Yes Physical Exam Triage Information Reviewed: Yes Appearance: Well-Appearing Vital Signs: Initial Vital Signs Temp 98.7 F 12/17/17 16:32 Pulse 103 12/17/17 16:32 Resp 28 12/17/17 16:32 BP 140/78 12/17/17 16:32 Pulse Ox 100 12/17/17 16:32 Vital Signs Reviewed: Yes Eyes: Positive: Conjunctiva Clear ENT: Positive: Pharynx normal, TMs normal. Negative: Nasal congestion, Nasal drainage Neck: Positive: Supple, Nontender, No Lymphadenopathy Respiratory: Positive: Lungs clear, Normal breath sounds, No respiratory distress Cardiovascular: Positive: RRR, No Murmur Abdomen Description: Positive: Nontender, No Organomegaly, Soft Bowel Sounds: Positive: Present Musculoskeletal: Positive: ROM Intact Neurological: Positive: Alert Psychological: Positive: Normal Response To Family, Age Appropriate Behavior Skin: Positive: rashes - PINK RAISED RASH ON FACE, TRUNK AND EXTREMITIES. MILD SWELLING TO TOES. NO BLISTERING AND NOT PETECHIAL. Re-Evaluation - Re-Evaluation First Eval Re-Evaluation Time: 17:20 Change: Improved - RASH IMPROVING PRE TX HERE. Allergic Reaction Course/Dx - Course Course Of Treatment: NO ANAPHYLAXIS OR ALY SHADI SYNDROM. C/W ALLERGIC REACTION. IMPROVING PRE TX. - Differential Dx/Diagnosis Provider Diagnoses: ALLERGIC REACTION. Discharge - Sign-Out/Discharge Documenting (check all that apply): Patient Departure All imaging exams completed and their final reports reviewed: No Studies - Discharge Plan Condition: Stable Disposition: HOME Prescriptions: predniSONE TAB* [Deltasone 20 MG TAB*] 40 mg PO DAILY 2 Days #4 tab Patient Education Materials: Urticaria (ED) Referrals: Bobbi Wisdom MD [Primary Care Provider] - 3 Days Additional Instructions: TAKE BENADRYL 50 MG EVERY 6 HOURS UNTIL REACTION RESOLVES. GO TO ER FOR ANY WORSENING. STOP ALL USE OF THE NEW DETERGENT AND REWASH CLOTHING WASHED IN THAT SOAP. - Billing Disposition and Condition Condition: STABLE Disposition: Home
== END 2017-12-17 17:56 | disposition home or self-care (01) ==
LOC: UCCORT 16:28
DX: T78.40XA Allergy, unspecified, initial encounter (principal); F17.210 Nicotine dependence, cigarettes, uncomplicated; Z91.048 Other nonmedicinal substance allergy status; X58.XXXA Exposure to other specified factors, initial encounter
CPT/HCPCS: 99211; A9270-GY; G0463; J7512

== ENCOUNTER 2017-12-31 20:41 | Emergency (ER) | payer MEDICAID, OTHER ==
--- OUTSIDE RECORDS SUMMARY | 2017-12-31 20:49 | XMS REPORT ---
:1990 External Reference #:[id number] Author Organization [facility] Address [address] [place] [address] [place] [address] Phone [phone] Care Team Providers Name Role Phone Otto Abebe M.D. Care Team Information Army Manager Unavailable Payers Type Date Identification Numbers Payment Provider Subscriber Commercial Effective: Policy Number: Heath Sanchez 2007 [id number] Expires: 2017 PayID: [id number] [place] [id number] [facility] Expires: 2017 Policy Number: [id number] Medicaid Arina Sanchez Group Name: [address] PayID: [id number] [place] [address] Commercial Effective: 2017 Policy Number: [id number] Heath Sanchez PayID: [id number] [place] [phone] [facility] Expires: 2017 Policy Number: [id number] Medicaid Arina Sanchez Group Name: [address] PayID: [id number] [place] [address] Problems Description No Information Family History Date Family Member(s) Problem(s) Comments General bipolar General anxiety Social History Type Date Description Comments 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 [employer] ETOH Use Denies alcohol use Smoking Heavy tobacco smoker (more than 10 cigarettes/day) Allergies, Adverse Reactions, Alerts Date Description Reaction Status Severity Comments 10/21/2017 Paxil active 10/21/2017 Prozac active 10/21/2017 Zoloft active 10/21/2017 Lexapro active 10/21/2017 Ssri's active 12/26/2017 Gain Laundry Soap active 11/25/2011 NKDA inactive Medications Medication Date Status Form Strength Qnty SIG Indications Ordering Provider Azelastine HCL 12/26/ Active Solution 0.1% 30ml Use 1 to 2 J30.9 Rick (Nasal) 2018 sprays in MD Zachariah each nostril twice a day. Ziprasidone HCL 12/23/ Active Capsules 80mg 60cap Take 1 tab Rick 2018 s twice a MD Zachariah day Sproul Carbonate 12/23/ Active Capsules 300mg 60cap Take 1 Rick 2017 s tablet MD Zachariah twice a day Sproul Carbonate 12/23/ Active Capsules 150mg 30cap Take one Rick 2018 s at night MD Zachariah along with 300 mg capsule(45 0mg total at night) Acetaminophen 12/02/ Active Tablets 500mg 120ta 2 tabs by M54.5 Taylor Extra Strength 2018 bs mouth Senner, three DO times a day as needed Hydroxyzine HCL 12/02/ Active Tablets 10mg 90tab 1 tab by F31.74 Taylor 2017 s mouth Senner, three DO times a day as needed No Active 12/02/ Hx Unknown Medications 2017 - 2017 Cyclobenzaprine 11/04/ Hx Tablets 5mg 90tab 1 tab M54.5 Taylor HCL 2018 - s three Senner, 12/01/ times a DO 2017 day as needed Voltaren 11/04/ Hx Gel 1% 100gm 1 teaspoon M54.5 Taylor 2018 - to back Senner, 12/01/ four times DO 2018 a day Naproxen 11/04/ Hx Tablets 500mg 60tab 1 tab M54.5 Taylor 2017 - s twice a Senner, 12/01/ day as DO 2018 needed Buspirone HCL 10/21/ Hx Tablets 10mg 60tab 1 tab in F41.1 Taylor 2018 - s the Senner, 12/01/ morning DO 2018 and 2 tabs at night Abilify / Hx Tablets 5mg 30tab 1 po qd White, 0000 - s Vanesa, 2017 Wellbutrin SR / Hx Tablets ER 150mg 60tab 1 po bid White, 0000 - 12HR s Vanesa 2017 Ibuprofen / Hx Tablets 600mg 90tab tid Shawanda, 0000 - s Vanesa 2017 Multi Complete / Hx Capsules daily Unknown 0000 - 2017 Cyclobenzaprine / Hx Tablets 5mg currently Unknown HCL 0000 - not - 2017 take one tablet by mouth every 8 hours prn. Sproul Carbonate / Hx Capsules 300mg 60cap 1 by mouth Zachariah 0000 - s carol Cabrera MD daily 2017 Sproul Carbonate / Hx Capsules 150mg one at Unknown 0000 - night along with 2018 300 mg capsule Ziprasidone HCL / Hx Capsules 80mg 60cap one twice Rick 0000 - s daily with MD Zachariah 12/23/ a meal 2017 Vital Signs Date Vital Result Comment 12/26/2017 Weight 260.00 lb Heart Rate 88 /min BP Systolic 132 mmHg BP Diastolic 80 mmHg BP Systolic Sitting 136 mmHg BP Diastolic Sitting 84 mmHg Respiratory Rate 16 /min Body Temperature 99.4 F tylenol at 830 Am. Pain Level 1 O2 % BldC Oximetry 98 % 12/02/2017 Height 61 inches 5'1" Weight 253.50 lb Heart Rate 88 /min BP Systolic Sitting 110 mmHg adult cuff left arm BP Diastolic Sitting 76 mmHg adult cuff left arm Body Temperature 99.1 F O2 % BldC Oximetry 98 % BMI (Body Mass Index) 47.9 kg/m2 Last Menstrual Period [id number] 11/04/2017 Weight 260.00 lb Heart Rate 84 [...] mmHg BP Diastolic Sitting 80 mmHg Results Test Date Test Result H/L Range Note Laboratory test finding 12/08/2017 Sproul 0.28 mmol/L Low 0.6-1.2 Drug Abuse W/Confirm, Ur 12/08/2017 Urine Alcohol Negative mg/dL Cutoff: 10 Urine Amphetamine Negative ng/mL 1 Urine Barbiturates Negative ng/mL 2 Urine Benzodiazepines Negative ng/mL 3 Urine Cocaine Negative ng/mL 4 Urine Methadone Negative ng/mL Negative 5 Urine Opiates Negative ng/mL Negative 6 Urine Phencyclidine Negative ng/mL Cutoff: 25 Urine Tetrahydrocannabinol Negative ng/mL Cutoff: 50 7 1 REFERENCE VALUE Cutoff: 500 2 REFERENCE VALUE Cutoff: 200 3 REFERENCE VALUE Cutoff: 100 4 REFERENCE VALUE Cutoff: 150 5 REFERENCE VALUE Cutoff: 300 6 REFERENCE VALUE Cutoff: 300 7 ADDITIONAL INFORMATION This report is intended for use in clinical monitoring or management of patients. It is not intended for use in employment-related testing. This test has been modified from the glazier metal furniture's instructions. Its performance characteristics were determined by [facility] in a manner consistent with CLIA requirements. This test has not been cleared or approved by the U.S. Food and Drug Administration. Test Performed by: [facility] [address], [place] [address] Procedures Description No Information Encounters Type Date Location Provider CPT E/M Dx Office Visit 12/02/2017 [facility] [place] [address] F31.74 11:30a [facility] M54.5 Office Visit 11/04/2017 10:30a [facility] [place] [address] [facility] F41.1 Office Visit 10/21/2017 1:00p [facility] [place] [address] [facility] F41.1 Office Visit 11/29/2011 10:00a [facility], [address] 845.00 C.M.A. MSavi Office Visit 11/25/2011 3:45p [facility] Otto Abebe M.D. [address] 719.46 AT [place] Plan of Care Future Appointment(s):01/01/2018 2:30 pm - Taylor Liu DO at [facility]12/26/2017 - Rick Soni MDJ30.9 Allergic rhinitis, unspecifiedNew Medication:Azelastine HCL (Nasal) 0.1 %F31.74 Bipolar disorder, in full remis, most recent episode isxavT89.5 Low back painF41.1 Generalized anxiety cmojdiurQ13.210 Nicotine dependence, cigarettes, uncomplicated
--- NOTE | 2017-12-31 21:40 | UC ---
UC General HPI - HPI Summary HPI Summary: 1. Patient is complaining of a one-week history of a cough and head congestion. She is no associated fever or chills. She does have some pressure to her sinuses. The drainage is not purulent. 2. Patient also wants to be certain that she does not have a urinary tract infection. She's noted a little bit of burning with urination for about a day. She has no associated abdominal pain, fever or chills and no vaginal discharge. - History of Current Complaint Stated Complaint: SINUSES,COUGH,URINARY Time Seen by Provider: 12/31/17 21:19 Hx Obtained From: Patient Hx Last Menstrual Period: 11/16/17 Onset/Duration: Gradual Onset Alleviating: nothing Associated Signs & Symptoms: Positive: Cough. Negative: Abdominal Pain, Back Pain, Fever - Allergy/Home Medications Allergies/Adverse Reactions: Allergies Allergy/AdvReac Type Severity Reaction Status Date / Time SSRI MEDICATION Allergy Unknown ANXIETY, Uncoded 12/31/17 21:35 PARINOID Gain laundry detergent Allergy Hives Uncoded 12/31/17 21:32 PMH/Surg Hx/FS Hx/Imm Hx Psychological History: Anxiety, Bipolar Disorder Other History Of: Negative For: HIV, Hepatitis B, Hepatitis C, Anticoagulant Therapy - Surgical History Surgical History: Yes Surgery Procedure, Year, and Place: , 2007, [facility] - Family History Known Family History: Positive: Hypertension, Diabetes, Other - BIPOLAR - Social History Lives: With Family Alcohol Use: None Substance Use Type: None Substance Use Comment - Amount & Last Used: no use in 2 weeks, states in an out pt tx center Smoking Status (MU): Heavy Every Day Tobacco Smoker Type: Cigarettes Amount Used/How Often: 1 PPD Length of Time of Smoking/Using Tobacco: since age 14 Have You Smoked in the Last Year: Yes Household Exposure Type: Cigarettes - Immunization History Most Recent Influenza Vaccination: unknown Most Recent Pneumonia Vaccination: N/A Vaccination Up to Date: Yes Review of Systems Constitutional: Negative Skin: Negative Eyes: Negative ENT: Sinus Congestion, Sinus Pain/Tenderness Respiratory: Cough Cardiovascular: Negative Gastrointestinal: Negative Genitourinary: Dysuria Motor: Negative Neurovascular: Negative Musculoskeletal: Negative Neurological: Negative Psychological: Negative Is Patient Immunocompromised?: No All Other Systems Reviewed And Are Negative: Yes Physical Exam Triage Information Reviewed: Yes Appearance: Well-Appearing Vital Signs Reviewed: Yes Eyes: Positive: Conjunctiva Clear ENT: Positive: Pharynx normal, Nasal congestion, TMs normal. Negative: Nasal drainage, Sinus tenderness Neck: Positive: Supple, Nontender, No Lymphadenopathy Respiratory: Positive: Lungs clear, Normal breath sounds Cardiovascular: Positive: RRR, No Murmur Abdomen Description: Positive: Nontender, No Organomegaly, Soft Bowel Sounds: Positive: Present Musculoskeletal: Positive: ROM Intact Neurological: Positive: Alert Psychological: Positive: Age Appropriate Behavior Skin Exam: Normal Diagnostics - Laboratory Diagnostic Studies Completed/Ordered: u/a=1+ leuks with culture pending. Course/Dx - Course Course Of Treatment: Patient has no fever, no sinus tenderness on exam and no purulent drainage the same no concern for bacterial sinusitis. She agrees to treat her sinus congestion with some Mucinex. u/a=1+ leuks. will cover for possible uti while culture pending. - Differential Dx - Multi-Symptom Provider Diagnoses: URI. dysuira Discharge - Sign-Out/Discharge Documenting (check all that apply): Patient Departure All imaging exams completed and their final reports reviewed: No Studies - Discharge Plan Condition: Stable Disposition: HOME Prescriptions: Cephalexin CAP* [Keflex CAP*] 500 mg PO BID #14 cap Patient Education Materials: Upper Respiratory Infection (ED), Dysuria (ED) Referrals: Taylor Liu DO [Primary Care Provider] - 7 Days - Billing Disposition and Condition Condition: STABLE Disposition: Home
[2017-12-31 21:43] VITALS: BP 120/67
[2017-12-31] MEDS: Cephalexin CAP* 500 MG PO ONE (22:06)
== END 2017-12-31 22:08 | disposition home or self-care (01) ==
LOC: UCCORT 20:41
DX: F17.210 Nicotine dependence, cigarettes, uncomplicated (principal); J06.9 Acute upper respiratory infection, unspecified; R30.0 Dysuria
CPT/HCPCS: 81003; 87086; 99212; A9270-GY; G0463

== ENCOUNTER 2018-04-23 16:31 | Emergency (ER) | payer OTHER ==
[2018-04-23 17:46] VITALS: BP 116/72
--- NOTE | 2018-04-23 18:23 | UC ---
Respiratory Complaint HPI - HPI Summary HPI Summary: 28 yo WF presents with cough x 1.5 weeks associated with wheezing, SOB and pleuritic chest pain that is worsening. Pt is on Advair but does not recall ever being officially diagnosed with asthma - History of Current Complaint Chief Complaint: UCRespiratory Stated Complaint: COUGH/CONGESTION Time Seen by Provider: 04/23/18 17:26 Hx Obtained From: Patient Hx Last Menstrual Period: 04/19/18 Onset/Duration: Sudden Onset Severity Initially: Moderate Severity Currently: Moderate Pain Intensity: 6 Associated Signs And Symptoms: Positive: Dyspnea, Pleuritic Chest Pain, Wheezing , Nasal Congestion - Allergies/Home Medications Allergies/Adverse Reactions: Allergies Allergy/AdvReac Type Severity Reaction Status Date / Time SSRI MEDICATION Allergy Unknown ANXIETY, Uncoded 04/23/18 17:38 PARINOID Gain laundry detergent Allergy Hives Uncoded 04/23/18 17:38 Home Medications: Home Medications Fluticasone-Salmeterol 250-50* [Advair Diskus 250-50*] 1 puff INH BID 04/23/18 [ History Confirmed 04/23/18] guaiFENesin ER TAB [Mucinex*] 600 mg PO BID PRN 04/23/18 [History Confirmed ] PMH/Surg Hx/FS Hx/Imm Hx Other History Of: Negative For: HIV, Hepatitis B, Hepatitis C, Anticoagulant Therapy - Surgical History Surgical History: Yes Surgery Procedure, Year, and Place: , 2006, [facility] - Family History Known Family History: Positive: Hypertension, Diabetes, Other - BIPOLAR - Social History Alcohol Use: None Substance Use Type: None Substance Use Comment - Amount & Last Used: no use in 2 weeks, states in an out pt tx center Smoking Status (MU): Heavy Every Day Tobacco Smoker Type: Cigarettes Amount Used/How Often: 1 PPD Length of Time of Smoking/Using Tobacco: since age 14 Have You Smoked in the Last Year: Yes Household Exposure Type: Cigarettes - Immunization History Most Recent Influenza Vaccination: unknown Most Recent Pneumonia Vaccination: N/A Vaccination Up to Date: Yes Review of Systems All Other Systems Reviewed And Are Negative: Yes Constitutional: Positive: Negative Skin: Positive: Negative Eyes: Positive: Negative ENT: Positive: Negative Respiratory: Positive: Shortness Of Breath, Cough Cardiovascular: Positive: Negative Gastrointestinal: Positive: Negative Genitourinary: Positive: Negative Motor: Positive: Negative Neurovascular: Positive: Negative Musculoskeletal: Positive: Negative Neurological: Positive: Negative Psychological: Positive: Negative Physical Exam Vital Signs: Initial Vital Signs Temp 36.7 C 04/23/18 17:40 Pulse 90 04/23/18 17:40 Resp 26 04/23/18 17:40 BP 116/72 04/23/18 17:40 Pulse Ox 98 04/23/18 17:40 Eye Exam: Normal ENT Exam: Normal Dental Exam: Normal Neck exam: Normal Neck: Positive: 1 Respiratory: Positive: Normal breath sounds, No respiratory distress, Rhonchi. Negative: No accessory muscle use, Respiratory distress, Decreased breath sounds , Crackles, Wheezing Cardiovascular Exam: Normal Abdominal Exam: Normal Musculoskeletal Exam: Normal Neurological Exam: Normal Psychological Exam: Normal Skin Exam: Normal UC Diagnostic Evaluation - Laboratory O2 Sat by Pulse Oximetry: 98 Respiratory Course/Dx - Differential Dx/Diagnosis Provider Diagnosis: Bronchitis Discharge - Sign-Out/Discharge Documenting (check all that apply): Patient Departure All imaging exams completed and their final reports reviewed: Yes - Discharge Plan Condition: Stable Disposition: HOME Prescriptions: Albuterol HFA INHALER* [Ventolin HFA Inhaler*] 1 puff INH Q6H PRN 7 Days #1 mdi PRN Reason: Sob/Wheezing Azithromycin TAB* [Zithromax TAB (Z-NOEL) 250 mg #6 tabs] 2 tab PO .TODAY, THEN 1 DAILY #1 noel Patient Education Materials: Acute Bronchitis (ED) Referrals: Taylor Liu DO [Primary Care Provider] - Additional Instructions: follow up with whip operator for asthma maintenance and management - Billing Disposition and Condition Condition: STABLE Disposition: Home
== END 2018-04-23 18:22 | disposition home or self-care (01) ==
LOC: UCCORT 16:31
DX: J40 Bronchitis, not specified as acute or chronic (principal); F17.210 Nicotine dependence, cigarettes, uncomplicated
CPT/HCPCS: 99212; G0463

== ENCOUNTER 2018-06-27 09:44 | Emergency (ER) | payer OTHER ==
[2018-06-27 11:00] VITALS: BP 128/68
--- NOTE | 2018-06-27 11:42 | UC ---
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 Clear vaginal discharge and itch x3 day. " -she has had several yeast infections and is confident that these sx are consistent with previous. no known DM but does admit to drinking a lot of regular soda. 4-5 16-20 oz bottles regular pepsi daily. she has not been tested for DM -does not want any STD testing. monogamous - History Of Current Complaint Chief Complaint: UCGeneralIllness Stated Complaint: PERSONAL Time Seen by Provider: 06/27/18 11:37 Hx Last Menstrual Period: 06/18/18 Pain Intensity: 0 - Allergies/Home Medications Allergies/Adverse Reactions: Allergies Allergy/AdvReac Type Severity Reaction Status Date / Time SSRI MEDICATION Allergy Unknown ANXIETY, Uncoded 06/27/18 10:55 PARINOID Gain laundry detergent Allergy Hives Uncoded 06/27/18 10:55 Home Medications: Home Medications Bupropion XL* [Wellbutrin XL *] 150 mg DAILY 06/27/18 [History Confirmed ] Ziprasidone * [Geodon (generic) *] 80 mg PO QPM 06/27/18 [History Confirmed ] PMH/Surg Hx/FS Hx/Imm Hx Previously Healthy: Yes Psychological History: Other - mood d/o - geodon Other History Of: Negative For: HIV, Hepatitis B, Hepatitis C, Anticoagulant Therapy - Surgical History Surgical History: Yes Surgery Procedure, Year, and Place: , 2007, [facility] - Family History Known Family History: Positive: Hypertension, Diabetes, Other - BIPOLAR - Social History Alcohol Use: None Substance Use Type: None Substance Use Comment - Amount & Last Used: from last visit-no use in 2 weeks, states in an out pt tx center Smoking Status (MU): Heavy Every Day Tobacco Smoker Type: Cigarettes Amount Used/How Often: 1 PPD Length of Time of Smoking/Using Tobacco: since age 14 Have You Smoked in the Last Year: Yes Household Exposure Type: Cigarettes - Immunization History Most Recent Influenza Vaccination: unknown Most Recent Pneumonia Vaccination: N/A Vaccination Up to Date: Yes Review of Systems All Other Systems Reviewed And Are Negative: Yes Constitutional: Positive: Negative Skin: Positive: Negative Eyes: Positive: Negative ENT: Positive: Negative Respiratory: Positive: Negative Cardiovascular: Positive: Negative Gastrointestinal: Positive: Negative Genitourinary: Positive: Vaginal/Penile Itching, Vaginal/Penile Discharge Motor: Positive: Negative Neurovascular: Positive: Negative Musculoskeletal: Positive: Negative Neurological: Positive: Negative Psychological: Positive: Negative Is Patient Immunocompromised?: No Physical Exam Triage Information Reviewed: Yes Appearance: Well-Appearing, No Pain Distress, Well-Nourished - very pleasant Vital Signs: Initial Vital Signs Temp 98.6 F 06/27/18 10:57 Pulse 89 06/27/18 10:57 Resp 16 06/27/18 10:57 BP 128/68 06/27/18 10:57 Pulse Ox 100 06/27/18 10:57 Eye Exam: Normal Respiratory Exam: Normal Respiratory: Positive: Lungs clear, Normal breath sounds, No respiratory distress, No accessory muscle use Cardiovascular Exam: Normal Cardiovascular: Positive: RRR, No Murmur, Pulses Normal Abdomen Description: Positive: Nontender, Soft Pelvic Exam: Positive: Other - declines exam Musculoskeletal Exam: Normal Neurological Exam: Normal Psychological Exam: Normal Skin Exam: Normal Complaint Female Dx - Differential Dx/Diagnosis Differential Diagnosis/HQI/PQRI: Pelvic Inflammatory Disease, Sexually Transmitted Disease, Other - candidiasis Provider Diagnosis: Hanh infection of genital region Discharge - Sign-Out/Discharge Documenting (check all that apply): Patient Departure All imaging exams completed and their final reports reviewed: No Studies - Discharge Plan Condition: Stable Disposition: HOME Prescriptions: Fluconazole [Diflucan] 150 mg PO ONCE #1 tab Patient Education Materials: Yeast Infection (ED) Forms: *Work Release Referrals: Taylor Liu DO [Primary Care Provider] - If Needed Additional Instructions: -We talked about the risk of an arrhythmia with the diflucan interacting with both geodon and hydroxyzine however you are agreeable with taking this risk. Do not take the hydroxizine within several days of taking the diflucan. - Billing Disposition and Condition Condition: STABLE Disposition: Home
== END 2018-06-27 12:18 | disposition home or self-care (01) ==
LOC: UCCORT 09:44
DX: B37.9 Candidiasis, unspecified (principal); F17.210 Nicotine dependence, cigarettes, uncomplicated; Z91.09 Other allergy status, other than to drugs and biological substances
CPT/HCPCS: 99212; G0463

== ENCOUNTER 2018-07-29 20:25 | Emergency (ER) | payer OTHER ==
[2018-07-29 21:01] VITALS: BP 129/76
--- NOTE | 2018-07-29 21:17 | ED ---
Throat Pain/Nasal Congestion - HPI Summary HPI Summary: 28 yr old female with the complaint of nasal pain, left upper nose. Pain is 6/ 10. She has burning feeling. She denies pain in the eye or on range of motion. The patient states she has increased tearing in the left eye, and clear rhinorrhea left nostril only. She has not used cocaine for 10 months but states she used to snort in the left nostril. She has no cold or cough symptoms. - History of Current Complaint Chief Complaint: UCRespiratory Time Seen by Provider: 07/29/18 21:00 - Allergies/Home Medications Allergies/Adverse Reactions: Allergies Allergy/AdvReac Type Severity Reaction Status Date / Time SSRI MEDICATION Allergy Unknown ANXIETY, Uncoded 07/29/18 21:03 PARINOID Gain laundry detergent Allergy Hives Uncoded 07/29/18 21:03 PMH/Surg Hx/FS Hx/Imm Hx Endocrine/Hematology History: Denies: Hx Anticoagulant Therapy, Hx Diabetes, Hx Thyroid Disease Cardiovascular History: Denies: Hx Congestive Heart Failure, Hx Deep Vein Thrombosis, Hx Hypertension , Hx Myocardial Infarction, Hx Pacemaker/ICD Respiratory History: Denies: Hx Asthma, Hx Chronic Obstructive Pulmonary Disease (COPD), Hx Lung Cancer, Hx Pneumonia, Hx Pulmonary Embolism GI History: Denies: Hx Gall Bladder Disease, Hx Gastrointestinal Bleed, Hx Ulcer, Hx Urosepsis History: Denies: Hx Kidney Stones, Hx Renal Disease Musculoskeletal History: Reports: Hx Back Problems Sensory History: Denies: Hx Contacts or Glasses, Hx Hearing Aid Opthamlomology History: Denies: Hx Contacts or Glasses Neurological History: Reports: Hx Migraine Denies: Hx Dementia, Hx Nerve Disease, Hx Seizures, Hx Transient Ischemic Attacks (TIA) Psychiatric History: Reports: Hx Depression, Hx Bipolar Disorder Denies: Hx Anxiety, Hx Schizophrenia - Surgical History Surgery Procedure, Year, and Place: , 2007, [facility], [place] Infectious Disease History: No Infectious Disease History: Denies: Traveled Outside the [place] in Last 30 Days - Family History Known Family History: Positive: Hypertension, Diabetes, Other - BIPOLAR - Social History Alcohol Use: None Substance Use Type: Reports: None Substance Use Comment - Amount & Last Used: from last visit-no use in 2 weeks, states in an out pt tx center Smoking Status (MU): Heavy Every Day Tobacco Smoker Type: Cigarettes Amount Used/How Often: 1 PPD Length of Time of Smoking/Using Tobacco: since age 14 Have You Smoked in the Last Year: Yes Review of Systems Constitutional: Negative Negative: Photophobia, Blurred Vision, Diplopia, Drainage, Erythema Positive: Nasal Discharge, Other - left nasal pain All Other Systems Reviewed And Are Negative: Yes Physical Exam Triage Information Reviewed: Yes Vital Signs On Initial Exam: Initial Vitals Temp Pulse Resp BP Pulse Ox 98.4 F 94 16 129/76 99 07/29/18 20:53 07/29/18 20:53 07/29/18 20:53 07/29/18 20:53 07/29/18 20:53 Vital Signs Reviewed: Yes Appearance: Positive: Well-Appearing, No Pain Distress Skin: Positive: Warm, Skin Color Reflects Adequate Perfusion Head/Face: Positive: Normal Head/Face Inspection Eyes: Positive: EOMI, DENNY ENT: Positive: Normal ENT inspection, Nasal congestion - left only, TMs normal Respiratory/Lung Sounds: Positive: Clear to Auscultation, Breath Sounds Present Cardiovascular: Positive: RRR. Negative: Murmur Abdomen Description: Negative: Distended Musculoskeletal: Positive: Strength/ROM Intact Neurological: Positive: Sensory/Motor Intact, Alert, Oriented to Person Place, Time, CN Intact II-III, Normal Gait, Speech Normal Psychiatric: Positive: Normal - Bebo Coma Scale Best Eye Response: 4 - Spontaneous Best Motor Response: 6 - Obeys Commands Best Verbal Response: 5 - Oriented Coma Scale Total: 15 Diagnostics - Vital Signs Vital Signs Temp Pulse Resp BP Pulse Ox 07/29/18 20:53 98.4 F 94 16 129/76 99 - Laboratory Lab Statement: Any lab studies that have been ordered have been reviewed, and results considered in the medical decision making process. EENT Course/Dx - Course Course Of Treatment: 28 yr old with left side nasal pain high up. NOt able to visualize adequately. I have sent her to the ER for further evaluation of her nose and symptoms. She verbalizes that she is going to [facility] where they have ENT and optho available. - Diagnoses Provider Diagnoses: Nasal pain Discharge - Sign-Out/Discharge Documenting (check all that apply): Patient Departure All imaging exams completed and their final reports reviewed: No Studies - Discharge Plan Condition: Good Disposition: HOME-RECOMMEND TO ED Patient Education Materials: Rhinosinusitis (ED) Referrals: Taylor Liu DO [Primary Care Provider] - 1 Day Additional Instructions: You need to go to the ER for further evalulation of your nose and fiberoptic scope evaluation. - Billing Disposition and Condition Condition: GOOD Disposition: Home-Recommend to ED
== END 2018-07-29 21:20 | disposition home health service (06) ==
LOC: UCCORT 20:25
DX: J34.89 Other specified disorders of nose and nasal sinuses (principal); G43.909 Migraine, unspecified, not intractable, without status migrainosus; F31.9 Bipolar disorder, unspecified; Z88.8 Allergy status to other drugs, medicaments and biological substances; Z91.048 Other nonmedicinal substance allergy status; F17.210 Nicotine dependence, cigarettes, uncomplicated
CPT/HCPCS: 99212; G0463

== ENCOUNTER 2018-09-13 15:53 | Emergency (ER) | payer OTHER ==
--- OUTSIDE RECORDS SUMMARY | 2018-09-13 15:58 | XMS REPORT | Continuity of Care Document ---
:1990 External Reference #:[id number] Author Name Gudelia Frausto Care Team Providers Name Role Phone [facility] Primary Care Physician Unavailable Payers Date Identification Numbers Payment Provider Subscriber Effective: 2007 Policy Number: [id number] Heath Sanchez Expires: 2017 PayID: [id number] [place] [address] Expires: 2017 Policy Number: [id number] Medicaid Jose Sanchez Group Name: [address] PayID: [id number] [place] [address] Effective: 2017 Policy Number: [id number] Heath Sanchez Group Number: [id number] [facility] [address] PayID: [id number] [place] [address] Expires: 2017 Policy Number: [id number] Medicaid Jose Sanchez Group Name: [address] PayID: [id number] [place] [address] Problems Active Problems Provider Date Generalized anxiety disorder Rick Soni MD Onset: 03/06/2018 Bipolar affective disorder, currently manic, in full Rick Soni MD Onset: 09/2017 remission Acute sinusitis Rick Soni MD Onset: 03/06/2018 Family History Date Family Member(s) Observation Comments General bipolar General anxiety Social History Type Date Description Comments Sex Unknown 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 smoker, smokes every day Started age 14 Smoking Status Reviewed: 08/27/18 Patient is a current 1 pack currently. smoker, smokes every day Started age 14 Allergies, Adverse Reactions, Alerts Active Allergies Reaction Severity Comments Date Paxil 10/21/2017 Prozac 10/21/2017 Zoloft 10/21/2017 Lexapro 10/21/2017 Ssri's 10/21/2017 Gain Laundry Soap 12/26/2017 Inactive Allergies NKDA 11/25/2011 Medications Active Medications SIG Qnty Indications Ordering Date Provider Ventolin HFA take every 6 18gm Rick Soni MD 04/24/2018 hours as needed 108(90Base) mcg/Act for shortness of Aerosol breath or wheezing. Fluconazole 1 tab by mouth 1tabs Taylor Liu, 03/12/2018 150mg once DO Tablets Lidocream Apply a thin film 15gm Rick Soni MD 01/20/2018 4% Cream to affected area 2 to 3 times daily as needed Advair Diskus 2 puffs inhaled 60units J06.9 Taylor Liu, 01/01/2018 daily DO 100-50mcg/Dose Aerosol Ziprasidone HCL take 1 tab at 60caps Taylor Liu, 12/23/2017 80mg night. DO Capsules [place] Carbonate take 2 tabs once 60caps Taylor Liu, 12/23/2017 300mg a day DO Capsules [place] Carbonate take one at night 30caps Taylor Liu, 12/23/2017 150mg along with 300 mg DO Capsules capsule(450mg total at night) Acetaminophen Extra 2 tabs by mouth 120tabs M54.5 Taylor Liu, 2017 Strength three times a day DO 500mg Tablets as needed Hydroxyzine HCL 1 tab a day as 90tabs F31.74 Taylor Liu, 12/02/2017 10mg needed DO Tablets Multi Vitamin Daily 1 by mouth every 30tabs Taylor Liu, day DO Tablets Propranolol HCL 1 by mouth twice Unknown 20mg a day Tablets History Medications Nicotine Transdermal use daily. 28units Rick Soni MD 04/24/2018 - System Step 2 08/27/2018 14mg/24HR Patches 24HR Amoxicillin Take 1 tab twice 14tabs J01.90 Rick Soni MD 03/06/2018 - 500mg Tablets a day 03/06/2018 Amoxicillin Take 1 tab twice 14tabs J01.90 Rick Soni MD 03/06/2018 - 875mg Tablets a day for 7 08/27/2018 days. Azelastine HCL (Nasal) pt not using --- 30ml J30.9 Rick Soni MD 2017 - 0.1% Use 1 to 2 08/27/2018 Solution sprays in each nostril twice a day. No Active Medications Unknown 12/02/2017 - 12/02/2017 Cyclobenzaprine HCL 1 tab three 90tabs M54.5 [facility] 11/04/2017 - 5mg times a day as DO Noe 12/01/2017 Tablets needed Voltaren 1 teaspoon to 100gm M54.5 [facility] 11/04/2017 - 1% Gel back four times DO Noe 12/01/2017 a day Naproxen 1 tab twice a 60tabs M54.5 [facility] 11/04/2017 - 500mg Tablets day as needed DO Noe 12/01/2017 Buspirone HCL 1 tab in the 60tabs F41.1 Taylor 10/21/2017 - 10mg Tablets morning and 2 DO Noe 12/01/2017 tabs at night Abilify 1 po qd 30tabs White, - 5mg Tablets MD Vanesa 10/20/2017 Wellbutrin SR 1 po bid 60tabs White, - 150mg Tablets MD Vanesa 10/20/2017 ER 12HR Ibuprofen tid 90tabs White, - 600mg Tablets MD Vanesa 12/01/2017 Multi Complete daily Unknown - Capsules 12/01/2017 Cyclobenzaprine HCL currently not Unknown - 5mg taking- take one 12/01/2017 Tablets tablet by mouth every 8 hours prn. [place] Carbonate 1 by mouth twice 60caps Rick Soni MD - 300mg daily 12/23/2017 Capsules [place] Carbonate one at night Unknown - 150mg along with 300 12/23/2017 Capsules mg capsule Ziprasidone HCL one twice daily claudy Soni MD - 80mg with a meal 12/23/2017 Capsules Vital Signs Date Vital Result Comment 08/27/2018 11:46am Weight 286.00 lb Heart Rate 84 /min BP Systolic 118 mmHg BP Diastolic 68 mmHg Respiratory Rate 16 /min Body Temperature 98.7 F Pain Level 5 O2 % BldC Oximetry 98 % 03/06/2018 10:28am Weight 272.00 lb Heart Rate 84 /min BP Systolic 124 mmHg BP Diastolic 76 mmHg Respiratory Rate 18 /min Body Temperature 99.5 F Pain Level 2 pressure in nasal area O2 % BldC Oximetry 98 % 01/26/2018 9:44am Weight 266.00 lb Heart Rate 88 /min BP Systolic 140 mmHg BP Diastolic 84 mmHg Respiratory Rate 16 /min Body Temperature 97.3 F Pain Level 0 O2 % BldC Oximetry 98 % 01/01/2018 3:05pm Weight 263.00 lb Heart Rate 84 /min BP Systolic 142 mmHg BP Diastolic 82 mmHg Respiratory Rate 18 /min Body Temperature 99.8 F Pain Level 2 O2 % BldC Oximetry 98 % 12/26/2017 1:25pm Weight 260.00 lb Heart Rate 88 /min BP Systolic 132 mmHg BP Diastolic 80 mmHg BP Systolic Sitting 136 mmHg BP Diastolic Sitting 84 mmHg Respiratory Rate 16 /min Body Temperature 99.4 F tylenol at 830 Am. Pain Level 1 O2 % BldC Oximetry 98 % 12/02/2017 12:19pm Height 61 inches 5'1" Weight 253.50 lb Heart Rate 88 /min BP Systolic Sitting 110 mmHg adult cuff left arm BP Diastolic Sitting 76 mmHg adult cuff left arm Body Temperature 99.1 F O2 % BldC Oximetry 98 % BMI (Body Mass Index) 47.9 kg/m2 Last Menstrual Period [id number] 11/04/2017 11:35am Weight 260.00 lb Heart Rate 84 /min BP Systolic 132 mmHg BP Diastolic 86 mmHg Respiratory Rate 18 /min Body Temperature 98.2 F Pain Level 8 O2 % BldC Oximetry 99 % 10/21/2017 1:49pm Weight 262.00 lb Heart Rate 80 /min BP Systolic Sitting 132 mmHg BP Diastolic Sitting 77 mmHg Respiratory Rate 18 /min Pain Level 8 back O2 % BldC Oximetry 100 % 11/25/2011 3:48pm Weight 230.00 lb Heart Rate 80 /min BP Systolic Sitting 124 mmHg BP Diastolic Sitting 80 mmHg Results Test Date Facility Test Result H/L Range Note Laboratory test [facility] [place] 0.48 mmol/L Low 0.6-1.2 [address] [place] [address] [phone] Laboratory test [facility] Cytology SEE RESULT 1 , 2 finding [address] [place] [address] [phone] Urine Culture And [facility] Urine Culture SEE RESULT 3, 4 Sensitivities [address] [place] [address] [phone] Poc Urinalysis [facility] Poc Glucose, Negative Negative [address] [place] [address] [phone] Poc Bilirubin, Urine Negative Negative Poc Ketone, Urine Negative Negative Poc Specific [place], Urine 1.010 N 1.010-1.030 Poc Blood, Urine Negative Negative Poc pH, Urine 6.0 N 5-9 Poc Protein, Urine Negative Negative Poc Urobilinogen, Urine 0.2 Negative Poc Nitrite, Urine Negative Negative Poc Leukocytes, Urine 1+ Abnormal Negative Poc Color, Urine Yellow Poc Clarity, Urine Slightly Cloudy 5 Laboratory test 12/08/2017 [facility] [place] 0.28 mmol/L Low 0.6-1.[address] [place] [address] [phone] Drug Abuse 12/08/2017 [facility] Urine Negative Cutoff: 10 W/Confirm, Ur [address] Alcohol mg/[place] [address] [phone] Urine Amphetamine Negative ng/mL 6 Urine Barbiturates Negative ng/mL 7 Urine Benzodiazepines Negative ng/mL 8 Urine Cocaine Negative ng/mL 9 Urine Methadone Negative ng/mL Negative 10 Urine Opiates Negative ng/mL Negative 11 Urine Phencyclidine Negative ng/mL Cutoff: 25 Urine Tetrahydrocannabinol Negative ng/mL Cutoff: 50 12 1 NO TRACKING 2 SEE RESULT BELOW Name: JOSE SANCHEZ : [address]: Taylor Liu DO Acct: [id number] Unit: [id number] AGE: 27 Location: [facility] Re01/26/18 SEX: F Status: REG REF SPEC: [id number] SHAYY: 01/26/18-[address]: Taylor Liu DO REQ: [id number] RECD: 01/26/18 STATUS: SOUT _ ORDERED: TP IMAGE ANALYS, HPV/Thin Prep, HPV 16/18 GENE COMMENTS: NO TRACKING Negative for Intraepithelial lesion or Malignancy Date Time Test Result Flag (u) Normal Range 01/26/18 1100 @ HPV RNA RFLX GE Negative Negative @ @ The high-risk HPV types detected by the assay include: 16, @ 18, 31, 33, 35, 39, 45, 51, 52, 56, 58, 59, 66, and 68. A. Ectocervical/Endocervical Specimen Adequacy: Satisfactory of evaluation Transformation zone component identified Patient Information: HPV: High risk HPV RNA testing regardless of pap results. HPV 16/18 Genotype Reflex Actual Specimen Date: 01/26/18 Last Menstrual Date: 01/13/18 ?: N Post Menopausal?: N Hysterectomy?: N Previous Abnormal Pap Smears?:N Signed by and Reported on: CRICKET Ward(ASCP) [id number] This Pap test was evaluated with the assistance of the RainbowPrep Test Imaging System. Due to cytologic findings at the banquet server on call microscope, comprehensive manual rescreening by a Tag Stringer may be required. The Pap Smear is a screening test designed to aid in the detection of premalignant and malignant conditions of the uterine cervix. It is not a diagnostic procedure and should not be used as the sole means of detecting cervical cancer. Both false- positive and false- negative reports do occur. Depending on your risk status, a Pap smear should be obtained and evaluated every 1-3 years. END OF REPORT DEPARTMENT OF PATHOLOGY, [address] [place] [address] Jovon Paz M.D. Director [facility] # [id number] SEE RESULT BELOW Name: JOSE SANCHEZ : [address]: Tam Vazquez MD Acct: [id number] Unit: [id number] AGE: 27 Location: [facility] Re12/31/17 SEX: F Status: DEP ER SPEC: [id number] SHAYY: 12/31/[address] [facility] [address]: Kelsie CARDOZA REQ: [id number] RECD: 01/01/18-1007 STATUS: BERNADETTE ROJAS DR: Taylor Chapamn MD _ SOURCE: URINE SPDESC: ORDERED: Urine Culture COMMENTS: [id number] Procedure Result Reported Site Urine Culture Final 01/02/18- 0858 ML No Growth (<1,000 CFU/mL) * - [facility] . END OF REPORT DEPARTMENT OF PATHOLOGY, [address] [place] [address] Jovon Paz M.D. Director [facility] # [id number] 5 Hearing Aid Specialist: [id number] REFERENCE VALUE Cutoff: 500 7 REFERENCE VALUE Cutoff: 200 8 REFERENCE VALUE Cutoff: 100 9 REFERENCE VALUE Cutoff: 150 10 REFERENCE VALUE Cutoff: 300 11 REFERENCE VALUE Cutoff: 300 12 ADDITIONAL INFORMATION This report is intended for use in clinical monitoring or management of patients. It is not intended for use in employment-related testing. This test has been modified from the loss control manager's instructions. Its performance characteristics were determined by [facility] in a manner consistent with CLIA requirements. This test has not been cleared or approved by the U.S. Food and Drug Administration. Test Performed by: [facility] [address] [place] [address] Procedures Date Code Description Status 11/18/2017 39594 EKG, Interpretation Only Completed Encounters Type Date Location Provider Dx Diagnosis Office Visit 03/06/2018 Care Ankita Soni MD J01.90 Acute sinusitis, 9:40a [facility] unspecified F31.74 Bipolar disorder, in full remis, most recent episode manic F41.1 Generalized anxiety disorder F17.210 Nicotine dependence, cigarettes, uncomplicated Office Visit 01/26/2018 9:00a Orly Vazquez Z12.4 Encounter for [facility] DO Noe screening for malignant neoplasm of cervix F31.74 Bipolar disorder, in full remis, most recent episode manic Office Visit 01/01/2018 2:30p Care Ankita Vazquez F31.74 Bipolar [facility] Noe, DO disorder, in full remis, most recent episode manic M54.5 Low back pain F41.1 Generalized anxiety disorder N39.0 Urinary tract infection, site not specified J06.9 Acute upper respiratory infection, unspecified Office Visit 12/26/2017 1:00p Care Ankita Soni J30.9 Allergic rhinitis, [facility] unspecified J01.90 Acute sinusitis, unspecified F31.74 Bipolar disorder, in full remis, most recent episode manic M54.5 Low back pain F41.1 Generalized anxiety disorder F17.210 Nicotine dependence, cigarettes, uncomplicated Office Visit 12/02/2017 11:30a Care Ankita Vazquez F31.74 Bipolar [facility] Noe, DO disorder, in full remis, most recent episode manic M54.5 Low back pain Office Visit 11/04/2017 10:30a Care Ankita Liu M54.5 Low back [facility] DO pain F41.1 Generalized anxiety disorder Office Visit 10/21/2017 1:00p Care Ankita Liu M54.5 Low back [facility] DO pain F41.1 Generalized anxiety disorder Office Visit 11/29/2011 10:00a Orthopedic Harris Kaur, 845.00 [facility] Stra[facility] Ankle Unspec Site Office Visit 11/25/2011 3:45p [facility], 719.46 [facility] [place] [facility] Lower Leg Plan of Treatment 08/27/2018 - Rick Soni, MDM54.5 Low back painComments:Continue flexeril, Tylenol as needed. Start lidocaine cream again. Weight loss program to reduce strain on back.Follow up:12 months
[2018-09-13 16:11] VITALS: BP 138/70
[2018-09-13] MEDS ORDERED: SUMAtriptan SQ* 6 MG/0.5 ML VIAL SUBCUT ONE (16:38)
--- NOTE | 2018-09-13 16:42 | UC ---
Headache HPI - HPI Summary HPI Summary: Awoke with headache, throbbing from back of the head to behind the eyes. Associated with photophobia and nausea. No fevers. Not the worst headache. Has used toradol in the past. - History Of Current Complaint Chief Complaint: UCHeadache Stated Complaint: MIGRAINE Hx Obtained From: Patient Hx Last Menstrual Period: 08/18/18 ?: No Onset/Duration: Sudden Onset, Lasting Hours - 10, Still Present Initially Headache Was: Moderate Currently Pain Is: Moderate Pain Intensity: 7 Timing: Constant Character: Throbbing Location of Headache: Frontal, Occipital Aggravating Factor(s): Nothing Allevating Factor(s): Nothing Associated Signs And Symptoms: Positive: Nausea. Negative: Seizure, Vomiting, Sinus Pressure, Fever, Neck Stiffness, Decreased LOC - Allergies/Home Medications Allergies/Adverse Reactions: Allergies Allergy/AdvReac Type Severity Reaction Status Date / Time SSRI MEDICATION Allergy Unknown ANXIETY, Uncoded 08/18/18 21:18 PARINOID Gain laundry detergent Allergy Hives Uncoded 09/13/18 16:01 Home Medications: Home Medications Acetaminophen [Mapap] 1,000 mg PO PRN 09/13/18 [History] PMH/Surg Hx/FS Hx/Imm Hx Previously Healthy: Yes Other History Of: Negative For: HIV, Hepatitis B, Hepatitis C, Anticoagulant Therapy - Surgical History Surgical History: Yes Surgery Procedure, Year, and Place: , 2007, [facility] - Family History Known Family History: Positive: Hypertension, Diabetes, Other - BIPOLAR Negative: Cardiac Disease - Social History Occupation: Employed Full-time Lives: With Family Alcohol Use: None Substance Use Type: None Substance Use Comment - Amount & Last Used: from last visit-no use in 2 weeks, states in an out pt tx center Smoking Status (MU): Heavy Every Day Tobacco Smoker Type: Cigarettes Amount Used/How Often: 1 PPD Length of Time of Smoking/Using Tobacco: since age 14 Have You Smoked in the Last Year: Yes Household Exposure Type: Cigarettes - Immunization History Most Recent Influenza Vaccination: unknown Most Recent Pneumonia Vaccination: N/A Vaccination Up to Date: Yes Review of Systems All Other Systems Reviewed And Are Negative: Yes Eyes: Positive: Photophobia Gastrointestinal: Positive: Nausea Neurological: Positive: Headache Physical Exam Triage Information Reviewed: Yes Appearance: Well-Appearing, Pain Distress, Obese Vital Signs: Initial Vital Signs Temp 98.8 F 09/13/18 16:04 Pulse 84 09/13/18 16:04 Resp 20 09/13/18 16:04 BP 138/70 09/13/18 16:04 Pulse Ox 100 09/13/18 16:04 Vital Signs Reviewed: Yes Eyes: Positive: Conjunctiva Clear, Other: - disc's sharp. ENT: Positive: Pharynx normal, Nasal congestion, TMs normal Neck exam: Normal Respiratory Exam: Normal Cardiovascular Exam: Normal Musculoskeletal Exam: Normal Neurological Exam: Normal Psychological Exam: Normal Skin Exam: Normal Re-Evaluation - Re-Evaluation First Eval Re-Evaluation Time: 17:20 Change: Improved Headache Course/Dx - Differential Dx/Diagnosis Differential Diagnosis/HQI/PQRI: Migraine, Sinus Headache, Tension Headache Provider Diagnosis: Migraine without aura, Allergic rhinitis Discharge - Sign-Out/Discharge Documenting (check all that apply): Patient Departure All imaging exams completed and their final reports reviewed: No Studies - Discharge Plan Condition: Stable Disposition: HOME Prescriptions: SUMAtriptan TAB* [Imitrex TAB*] 100 mg PO ONCE #9 tab Patient Education Materials: Migraine Headache (ED), Sumatriptan (By injection) Referrals: Taylor Liu DO [Primary Care Provider] - Additional Instructions: Magnesium 400 or 500mg once a day. Vitamin D3 5000iu 3 capsules all at once, once a week. Make sure to keep a regular schedule. Treating allergies can help prevent headaches. NEILMED SINUS RINSE: CHECK OUT AT IES Saline nasal wash helps with mucous, allergies and congestion. It can be used up to twice a day or only as needed. Use lukewarm tap water. It does not have to be sterilized or distilled water. Do 1/3 on each side and snort out of both nostrils. Repeat the process with 1/6 of the bottle on each side with snorting in between to finish the solution in the bottle - Billing Disposition and Condition Condition: STABLE Disposition: Home
== END 2018-09-13 17:28 | disposition home or self-care (01) ==
LOC: UCCORT 15:53
DX: G43.009 Migraine without aura, not intractable, without status migrainosus (principal); J30.9 Allergic rhinitis, unspecified; F17.210 Nicotine dependence, cigarettes, uncomplicated
CPT/HCPCS: 96372; 99212; G0463; J3030

== ENCOUNTER 2018-10-21 19:54 | Emergency (ER) | payer OTHER ==
[2018-10-21 21:01] VITALS: BP 119/65
--- NOTE | 2018-10-21 21:28 | UC ---
Ear Complaint HPI - HPI Summary HPI Summary: Pt presents with c/o sudden onset of right ear pain that began 2-3 days ago. Pt denies fever, chills, URI or injury. - History of Current Complaint Chief Complaint: UCEar Stated Complaint: RT EAR COMPLAINT Time Seen by Provider: 10/21/18 21:23 Hx Obtained From: Patient Hx Last Menstrual Period: 08/18/18 ?: No Onset/Duration: Sudden Onset, Still Present Severity Initially: Mild Severity Currently: Mild Pain Intensity: 4 - Allergies/Home Medications Allergies/Adverse Reactions: Allergies Allergy/AdvReac Type Severity Reaction Status Date / Time SSRI MEDICATION Allergy Unknown ANXIETY, Uncoded 10/21/18 21:02 PARINOID Gain laundry detergent Allergy Hives Uncoded 10/21/18 21:02 Home Medications: Home Medications SUMAtriptan TAB* [Imitrex TAB*] 100 mg PO ONCE PRN 10/21/18 [History Confirmed 10/21/18] PMH/Surg Hx/FS Hx/Imm Hx Previously Healthy: Yes Other History Of: Negative For: HIV, Hepatitis B, Hepatitis C, Anticoagulant Therapy - Surgical History Surgical History: Yes Surgery Procedure, Year, and Place: , 2006, [facility], [facility] - Family History Known Family History: Positive: Hypertension, Diabetes, Other - BIPOLAR Negative: Cardiac Disease - Social History Occupation: Employed Full-time Lives: With Family Alcohol Use: Rare Substance Use Type: None Substance Use Comment - Amount & Last Used: from last visit-no use in 2 weeks, states in an out pt tx center Smoking Status (MU): Heavy Every Day Tobacco Smoker Type: Cigarettes Amount Used/How Often: 1 PPD Length of Time of Smoking/Using Tobacco: since age 14 Have You Smoked in the Last Year: Yes Household Exposure Type: Cigarettes - Immunization History Most Recent Influenza Vaccination: unknown Most Recent Pneumonia Vaccination: N/A Vaccination Up to Date: Yes Review of Systems All Other Systems Reviewed And Are Negative: Yes Constitutional: Positive: Negative Skin: Positive: Negative Eyes: Positive: Negative ENT: Positive: Ear Ache Respiratory: Positive: Negative Cardiovascular: Positive: Negative Gastrointestinal: Positive: Negative Genitourinary: Positive: Negative Motor: Positive: Negative Neurovascular: Positive: Negative Musculoskeletal: Positive: Negative Neurological: Positive: Negative Psychological: Positive: Negative Is Patient Immunocompromised?: No Physical Exam Triage Information Reviewed: Yes Appearance: Well-Appearing Vital Signs: Initial Vital Signs Temp 97.1 F 10/21/18 20:56 Pulse 77 10/21/18 20:56 Resp 18 10/21/18 20:56 BP 119/65 10/21/18 20:56 Pulse Ox 100 10/21/18 20:56 Vital Signs Reviewed: Yes Eye Exam: Normal ENT: Positive: Other - right TM ruptured Dental Exam: Normal Neck exam: Normal Respiratory Exam: Normal Respiratory: Positive: No respiratory distress Musculoskeletal Exam: Normal Neurological Exam: Normal Psychological Exam: Normal Skin Exam: Normal Ear Complaint Course/Dx - Differential Dx/Diagnosis Differential Diagnosis/HQI/PQRI: Perforated TM Provider Diagnosis: Traumatic rupture of right ear drum Discharge - Sign-Out/Discharge Documenting (check all that apply): Patient Departure All imaging exams completed and their final reports reviewed: No Studies - Discharge Plan Condition: Stable Disposition: HOME Prescriptions: Amoxicillin PO (*) [Amoxicillin 500 MG CAP*] 500 mg PO Q12H #20 cap Patient Education Materials: Ruptured Eardrum (ED) Referrals: Manjinder Pulliam MD [Medical Doctor] - Taylor Liu DO [Primary Care Provider] - If Needed Francisco Shelley MD [Medical Doctor] - Additional Instructions: Please follow up with your PCP and if needed an ENT specialist as soon as possible. - Billing Disposition and Condition Condition: STABLE Disposition: Home
== END 2018-10-21 21:35 | disposition home or self-care (01) ==
LOC: UCCORT 19:54
DX: H72.91 Unspecified perforation of tympanic membrane, right ear (principal)
CPT/HCPCS: 99212; G0463

== ENCOUNTER 2018-12-28 16:25 | Emergency (ER) | payer OTHER ==
[2018-12-28 17:09] VITALS: BP 131/51
--- NOTE | 2018-12-28 17:23 | UC ---
Throat Pain/Nasal Jacob HPI - HPI Summary HPI Summary: 28-year-old female presents with complaints one-week history of nasal congestion , clear nasal discharge, and a dry nonproductive cough. Yesterday she developed a sore throat. Denies fever, chills, ear pain, dysphagia, chest pain , shortness of breath, or wheezing. - History of Current Complaint Chief Complaint: UCRespiratory Stated Complaint: THROAT PAIN, BODY ACHES Time Seen by Provider: 12/28/18 17:02 Hx Obtained From: Patient Hx Last Menstrual Period: 12/20/18 Pain Intensity: 5 - Allergies/Home Medications Allergies/Adverse Reactions: Allergies Allergy/AdvReac Type Severity Reaction Status Date / Time SSRI MEDICATION Allergy Unknown ANXIETY, Uncoded 12/28/18 17:00 PARINOID Gain laundry detergent Allergy Hives Uncoded 12/28/18 17:00 Home Medications: Home Medications Purvis Carbonate CAP 150 mg PO DAILY 12/28/18 [History Confirmed 12/28/18] Lurasidone(*) [Latuda] 20 mg PO DAILY 12/28/18 [History Confirmed 12/28/18] metFORMIN* [Glucophage 850 MG TAB *] 850 mg PO DAILY 12/28/18 [History Confirmed 12/28/18] PMH/Surg Hx/FS Hx/Imm Hx Endocrine History: Diabetes Respiratory History: Asthma Psychological History: Bipolar Disorder Other History Of: Negative For: HIV, Hepatitis B, Hepatitis C, Anticoagulant Therapy - Surgical History Surgical History: Yes Surgery Procedure, Year, and Place: , 2006, [facility], [facility] - Family History Known Family History: Positive: Hypertension, Diabetes, Other - BIPOLAR Negative: Cardiac Disease - Social History Occupation: Employed Full-time Lives: Alone Alcohol Use: None Substance Use Type: None Substance Use Comment - Amount & Last Used: from last visit-no use in 2 weeks, states in an out pt tx center Smoking Status (MU): Heavy Every Day Tobacco Smoker Type: Cigarettes Amount Used/How Often: 1 PPD Length of Time of Smoking/Using Tobacco: since age 14 Have You Smoked in the Last Year: Yes Household Exposure Type: Cigarettes - Immunization History Most Recent Influenza Vaccination: unknown Most Recent Pneumonia Vaccination: N/A Vaccination Up to Date: Yes Review of Systems All Other Systems Reviewed And Are Negative: Yes Constitutional: Negative: Fever, Chills Eyes: Negative: Drainage, Eye Redness ENT: Positive: Sore Throat, Nasal Discharge, Sinus Congestion. Negative: Ear Ache Respiratory: Positive: Cough. Negative: Shortness Of Breath Cardiovascular: Negative: Palpitations, Chest Pain Gastrointestinal: Negative: Abdominal Pain, Vomiting, Diarrhea, Nausea Genitourinary: Positive: Negative Musculoskeletal: Positive: Negative Neurological: Positive: Negative Is Patient Immunocompromised?: No Physical Exam - Summary Physical Exam Summary: GENERAL APPEARANCE: Well developed, well nourished, alert and cooperative, and appears to be in no acute distress. EYES: Conjunctiva clear. No drainage. EARS: External auditory canals and tympanic membranes clear, hearing grossly intact. NOSE: Mild-moderate nasal congestion. No nasal discharge. THROAT: Pharyngeal erythema. No tonsilar inflammation, swelling, exudate, or lesions. Uvula midline. NECK: Neck supple, non-tender without lymphadenopathy. CARDIAC: Normal S1 and S2. No S3, S4 or murmurs. Rhythm is regular. There is no peripheral edema, cyanosis or pallor. Extremities are warm and well perfused. Capillary refill is less than 2 seconds. Peripheral pulses intact. LUNGS: Clear to auscultation without rales, rhonchi, wheezing or diminished breath sounds. Dry, non-productive cough. ABDOMEN: Positive bowel sounds. Soft, nondistended, nontender. No guarding or rebound. No masses or hepatosplenomegally. MUSKULOSKELETAL: ROM intact to all extremities. No joint erythema or tenderness. Normal muscular development. Normal gait. SKIN: Skin normal color, texture and turgor with no lesions or eruptions. Triage Information Reviewed: Yes Vital Signs: Initial Vital Signs Temp 97.5 F 12/28/18 17:05 Pulse 95 12/28/18 17:05 Resp 30 12/28/18 17:05 BP 131/51 12/28/18 17:05 Pulse Ox 99 12/28/18 17:05 Vital Signs Reviewed: Yes Throat Pain/Nasal Course/Dx - Course Course Of Treatment: 28-year-old female presents with complaints one-week history of nasal congestion , clear nasal discharge, and a dry nonproductive cough. Yesterday she developed a sore throat. Denies fever, chills, ear pain, dysphagia, chest pain , shortness of breath, or wheezing. Afebrile. Vital signs stable. Patient had mild to moderate nasal congestion, pharyngeal erythema without tonsillar swelling or exudate, no cervical lymphadenopathy, clear bilateral breath sounds , dry nonproductive cough, and otherwise unremarkable exam. Rapid strep test was negative. Discussed findings with the patient and I'm recommending continued symptomatic treatment for a viral upper respiratory infection. She is to follow-up with her primary care provider in 3-5 days if symptoms are not improving. Anticipatory guidance warning symptoms are reviewed with the patient. Verbalizes understanding and agrees with plan of care. - Differential Dx/Diagnosis Differential Diagnosis/HQI/PQRI: Mononucleosis, Peritonsillar Abscess, Pharyngitis, Sinusitis, Tonsillitis, URI Provider Diagnosis: Viral URI with cough Discharge ED - Sign-Out/Discharge Documenting (check all that apply): Patient Departure All imaging exams completed and their final reports reviewed: No Studies - Discharge Plan Condition: Stable Disposition: HOME Patient Education Materials: Upper Respiratory Infection (ED) Forms: *Work Release Referrals: Taylor Liu DO [Primary Care Provider] - 3 Days Additional Instructions: Your history and exam are consistent with a viral upper respiratory infection. Viral infections do not respond to antibiotics and are limited to the treatment of symptoms. Viral infections typically run their course in 7-10 days. Drink plenty of fluids to avoid dehydration especially if you are running any fever. Use a saline rinse kit such as Neti Pot or NeilMed at least twice a day to help thin secretions and promote drainage of the sinuses. Use fluticasone (Flonase) nasal spray 2 sprays each nostril once daily. Use your albuterol inhaler as directed if needed for any shortness of breath or wheezing. Take over the counter acetaminophen (Tylenol) or ibuprofen (Advil, Motrin) according to directions as needed for pain or fever. Use salt water gargles several times a day if you have a sore throat. You may also use Chloraseptic spray or Cepacol lonzenges according to directions which contain a numbing medication and can provide some temporary relief from your sore throat. Follow up with your primary care provider in 3-5 days if symptoms persist. Seek immediate medical attention in the emergency room if you have fever greater than 100.5 F despite taking acetaminophen or ibuprofen, have chest pain , difficulty breathing, are unable to swallow, or have any worsening of symptoms. - Billing Disposition and Condition Condition: STABLE Disposition: Home
== END 2018-12-28 17:50 | disposition home or self-care (01) ==
LOC: UCCORT 16:25
DX: J06.9 Acute upper respiratory infection, unspecified (principal); Z88.8 Allergy status to other drugs, medicaments and biological substances; E11.9 Type 2 diabetes mellitus without complications; Z79.84 Long term (current) use of oral hypoglycemic drugs; F31.9 Bipolar disorder, unspecified; F17.210 Nicotine dependence, cigarettes, uncomplicated
CPT/HCPCS: 87651; 99211; G0463

== ENCOUNTER 2019-02-24 16:17 | Emergency (ER) | payer OTHER ==
[2019-02-24 17:20] VITALS: BP 123/76
--- NOTE | 2019-02-24 17:43 | UC ---
Ear Complaint HPI - HPI Summary HPI Summary: 28-year-old female complaining of left earache. No recent cold symptoms. Patient states the earache just started today. - History of Current Complaint Chief Complaint: UCEar Stated Complaint: LEFT EAR PAIN Time Seen by Provider: 02/24/19 17:37 Hx Obtained From: Patient Hx Last Menstrual Period: 12/20/18 ?: No Onset/Duration: Gradual Onset Severity Initially: Mild Severity Currently: Mild Pain Intensity: 4 Aggravating Factors: Nothing Alleviating Factors: Nothing - Allergies/Home Medications Allergies/Adverse Reactions: Allergies Allergy/AdvReac Type Severity Reaction Status Date / Time SSRI MEDICATION Allergy Unknown ANXIETY, Uncoded 02/24/19 17:21 PARINOID Gain laundry detergent Allergy Hives Uncoded 02/24/19 17:21 PMH/Surg Hx/FS Hx/Imm Hx Previously Healthy: Yes Psychological History: Bipolar Disorder Other History Of: Negative For: HIV, Hepatitis B, Hepatitis C, Anticoagulant Therapy - Surgical History Surgical History: Yes Surgery Procedure, Year, and Place: , 2007, [facility], [facility] - Family History Known Family History: Positive: Hypertension, Diabetes, Other - BIPOLAR Negative: Cardiac Disease - Social History Lives: With Family Alcohol Use: Rare Substance Use Type: None Substance Use Comment - Amount & Last Used: from last visit-no use in 2 weeks, states in an out pt wa center Smoking Status (MU): Heavy Every Day Tobacco Smoker Type: Cigarettes Amount Used/How Often: 1 PPD Length of Time of Smoking/Using Tobacco: since age 14 Have You Smoked in the Last Year: Yes Household Exposure Type: Cigarettes - Immunization History Most Recent Influenza Vaccination: unknown Most Recent Pneumonia Vaccination: N/A Vaccination Up to Date: Yes Review of Systems All Other Systems Reviewed And Are Negative: Yes ENT: Positive: Ear Ache - Left earache today Is Patient Immunocompromised?: No Physical Exam Triage Information Reviewed: Yes Appearance: Well-Appearing, No Pain Distress, Well-Nourished Vital Signs: Initial Vital Signs Temp 98.1 F 02/24/19 17:18 Pulse 82 02/24/19 17:18 Resp 20 02/24/19 17:18 BP 123/76 02/24/19 17:18 Pulse Ox 100 02/24/19 17:18 Vital Signs Reviewed: Yes Eyes: Positive: Conjunctiva Clear ENT: Positive: Hearing grossly normal, Pharynx normal, TMs normal, Uvula midline Neck: Positive: Supple, Nontender, No Lymphadenopathy Respiratory: Positive: Lungs clear, Normal breath sounds, No respiratory distress, No accessory muscle use Cardiovascular: Positive: RRR, No Murmur, Pulses Normal, Brisk Capillary Refill Musculoskeletal Exam: Normal Neurological Exam: Normal Psychological Exam: Normal Skin Exam: Normal Ear Complaint Course/Dx - Course Course Of Treatment: Patient is comfortable here. She can take Tylenol or Advil for pain. She is to follow-up with her primary care provider if her earache worsens or does not improve over the next 3 or 4 days. - Differential Dx/Diagnosis Provider Diagnosis: Otalgia, left ear Discharge ED - Sign-Out/Discharge Documenting (check all that apply): Patient Departure All imaging exams completed and their final reports reviewed: No Studies - Discharge Plan Condition: Good Disposition: HOME Patient Education Materials: Earache (ED) Referrals: Taylor Liu DO [Primary Care Provider] - Additional Instructions: Tylenol every 4 hours for pain and may alternate with Motrin every 8 hours. Follow-up with your primary care provider if no improvement in 3 or 4 days. - Billing Disposition and Condition Condition: GOOD Disposition: Home - Attestation Statements Provider Attestation: I was available for consult. This patient was seen by the STEPHEN. The patient was not presented to, seen by, or examined by me. -Earlene
== END 2019-02-24 17:53 | disposition home or self-care (01) ==
LOC: UCCORT 16:17
DX: H92.02 Otalgia, left ear (principal); F17.210 Nicotine dependence, cigarettes, uncomplicated; F31.9 Bipolar disorder, unspecified; Z91.09 Other allergy status, other than to drugs and biological substances; Z88.8 Allergy status to other drugs, medicaments and biological substances
CPT/HCPCS: 99211; G0463

== ENCOUNTER 2019-04-02 14:35 | Emergency (ER) | payer OTHER ==
[2019-04-02 16:09] VITALS: BP 135/76
[2019-04-02] MEDS ORDERED: Ondansetron ODT TAB* 4 MG PO ONE (16:24)
[2019-04-02] MEDS ORDERED: Ketorolac *IM* INJ* 60 MG/2 ML VIAL IM ONE (16:24)
--- NOTE | 2019-04-02 16:29 | UC ---
Headache HPI - HPI Summary HPI Summary: 28-year-old woman comes in with a chief complaint of migraine headache which started last night. Pain is in the left side of her head close her left eye. This is a typical distribution and character of her typical migraines. Also been nauseous and she did throw up. After throwing up the pain did feel somewhat better. No fevers no chills no weakness no numbness or difficulty with vision or speech. - History Of Current Complaint Chief Complaint: UCGeneralIllness Stated Complaint: MIGRAINE Time Seen by Provider: 04/02/19 16:08 Hx Last Menstrual Period: 03/19/19 Pain Intensity: 8 - Allergies/Home Medications Allergies/Adverse Reactions: Allergies Allergy/AdvReac Type Severity Reaction Status Date / Time SSRI MEDICATION Allergy Unknown ANXIETY, Uncoded 04/02/19 16:09 PARINOID Gain laundry detergent Allergy Hives Uncoded 04/02/19 16:09 Home Medications: Home Medications buPROPion SR TAB* [Wellbutrin SR TAB*] 100 mg PO DAILY 04/02/19 [History Confirmed 04/02/19] PMH/Surg Hx/FS Hx/Imm Hx Previously Healthy: Yes Neurological History: Migraine Other History Of: Negative For: HIV, Hepatitis B, Hepatitis C, Anticoagulant Therapy - Surgical History Surgical History: Yes Surgery Procedure, Year, and Place: , 2007, [facility], [facility] - Family History Known Family History: Positive: Hypertension, Diabetes, Other - BIPOLAR Negative: Cardiac Disease - Social History Alcohol Use: Rare Substance Use Type: None Substance Use Comment - Amount & Last Used: from last visit-no use in 2 weeks, states in an out pt tx center Smoking Status (MU): Heavy Every Day Tobacco Smoker Type: Cigarettes Amount Used/How Often: 1 PPD Length of Time of Smoking/Using Tobacco: since age 14 Have You Smoked in the Last Year: Yes Household Exposure Type: Cigarettes - Immunization History Most Recent Influenza Vaccination: unknown Most Recent Pneumonia Vaccination: N/A Vaccination Up to Date: Yes Review of Systems All Other Systems Reviewed And Are Negative: Yes Constitutional: Positive: Other - SEE HPI Skin: Positive: Negative Eyes: Positive: Negative ENT: Positive: Negative Respiratory: Positive: Negative Cardiovascular: Positive: Negative Gastrointestinal: Positive: Vomiting Motor: Positive: Negative Neurovascular: Positive: Negative Musculoskeletal: Positive: Negative Neurological: Positive: Headache Psychological: Positive: Negative Is Patient Immunocompromised?: No Physical Exam Triage Information Reviewed: Yes Appearance: Well-Appearing, Well-Nourished, Pain Distress - MILD Vital Signs: Initial Vital Signs Temp 97.6 F 04/02/19 16:03 Pulse 82 04/02/19 16:03 Resp 16 04/02/19 16:03 BP 135/76 04/02/19 16:03 Pulse Ox 98 04/02/19 16:03 Vital Signs Reviewed: Yes Eye Exam: Normal Eyes: Positive: Conjunctiva Clear, Other: - Mild photophobia. Neck: Positive: Supple Respiratory: Positive: No respiratory distress Musculoskeletal: Positive: Strength Intact, ROM Intact Neurological: Positive: Alert, Muscle Tone Normal Psychological: Positive: Normal Response To Family, Age Appropriate Behavior Skin Exam: Normal Headache Course/Dx - Differential Dx/Diagnosis Provider Diagnosis: Migraine Discharge ED - Sign-Out/Discharge Documenting (check all that apply): Patient Departure All imaging exams completed and their final reports reviewed: No Studies - Discharge Plan Condition: Stable Disposition: HOME Prescriptions: SUMAtriptan TAB* [Imitrex TAB*] 100 mg PO SEE INSTRUCTIONS #10 tab Patient Education Materials: Migraine Headache (ED) Referrals: Taylor Liu DO [Primary Care Provider] - Additional Instructions: FOLLOW UP WITH YOUR DOCTOR IF NOT COMPLETELY IMPROVED. GO TO THE EMERGENCY DEPARTMENT IF NOT IMPROVING OR WORSE; PAIN, WEAKNESS, NUMBNESS, FEVER, DIFFICULTY WITH VISION OR SPEECH, YOU FEEL ILL OR ANY QUESTIONS OR CONCERNS. - Billing Disposition and Condition Condition: STABLE Disposition: Home
== END 2019-04-02 16:50 | disposition home or self-care (01) ==
LOC: UCCORT 14:35
DX: G43.909 Migraine, unspecified, not intractable, without status migrainosus (principal); F17.210 Nicotine dependence, cigarettes, uncomplicated; Z79.899 Other long term (current) drug therapy; Z88.8 Allergy status to other drugs, medicaments and biological substances; Z91.09 Other allergy status, other than to drugs and biological substances
CPT/HCPCS: 96372; 99212; A9270-GY; G0463; J1885

== ENCOUNTER 2019-04-09 17:43 | Emergency (ER) | payer OTHER ==
[2019-04-09 18:49] VITALS: BP 135/66
--- NOTE | 2019-04-14 18:56 | UC ---
UC General HPI - HPI Summary HPI Summary: 28-year-old female whose had no recent illness however she states that she feels hot and cold intermittently and she was worried about some sort of "deficiency". She denies any other symptoms. - History of Current Complaint Chief Complaint: UCGeneralIllness Stated Complaint: CHILLS, VOMITING Time Seen by Provider: 04/09/19 19:03 Hx Obtained From: Patient Hx Last Menstrual Period: 03/19/19 Onset/Duration: Gradual Onset, Lasting Weeks Timing: Constant Onset Severity: Mild Current Severity: Mild Pain Intensity: 0 - Allergy/Home Medications Allergies/Adverse Reactions: Allergies Allergy/AdvReac Type Severity Reaction Status Date / Time SSRI MEDICATION Allergy Unknown ANXIETY, Uncoded 04/09/19 18:49 PARINOID Gain laundry detergent Allergy Hives Uncoded 04/09/19 18:49 PMH/Surg Hx/FS Hx/Imm Hx Previously Healthy: Yes Psychological History: Bipolar Disorder Other History Of: Negative For: HIV, Hepatitis B, Hepatitis C, Anticoagulant Therapy - Surgical History Surgical History: Yes Surgery Procedure, Year, and Place: , 2007, [facility], [facility] - Family History Known Family History: Positive: Hypertension, Diabetes, Other - BIPOLAR Negative: Cardiac Disease - Social History Alcohol Use: Rare Substance Use Type: None Substance Use Comment - Amount & Last Used: from last visit-no use in 2 weeks, states in an out pt tx center Smoking Status (MU): Heavy Every Day Tobacco Smoker Type: Cigarettes Amount Used/How Often: 1 PPD Length of Time of Smoking/Using Tobacco: since age 14 Have You Smoked in the Last Year: Yes Household Exposure Type: Cigarettes - Immunization History Most Recent Influenza Vaccination: unknown Most Recent Pneumonia Vaccination: N/A Vaccination Up to Date: Yes Review of Systems All Other Systems Reviewed And Are Negative: Yes Constitutional: Positive: Other - Intermittently feels hot or cold but no registered fever. Is Patient Immunocompromised?: No Physical Exam Triage Information Reviewed: Yes Appearance: Well-Appearing, No Pain Distress, Well-Nourished Vital Signs: Initial Vital Signs Temp 97.6 F 04/09/19 18:46 Pulse 76 04/09/19 18:46 Resp 16 04/09/19 18:46 BP 135/66 04/09/19 18:46 Pulse Ox 100 04/09/19 18:46 Vital Signs Reviewed: Yes Eyes: Positive: Conjunctiva Clear ENT: Positive: Hearing grossly normal, Pharynx normal, TMs normal, Uvula midline Neck: Positive: Supple, Nontender, No Lymphadenopathy Respiratory: Positive: Lungs clear, Normal breath sounds, No respiratory distress, No accessory muscle use Cardiovascular: Positive: RRR, No Murmur, Pulses Normal, Brisk Capillary Refill Abdomen Description: Positive: Nontender, No Organomegaly, Soft. Negative: CVA Tenderness (R), CVA Tenderness (L), Distended, Guarding, Hepatomegaly, Splenomegaly Bowel Sounds: Positive: Present Musculoskeletal Exam: Normal Neurological Exam: Normal Psychological Exam: Normal Skin Exam: Normal Course/Dx - Course Course Of Treatment: Patient is comfortable here with only complaints of feeling hot and cold occasionally. Urine was negative for urinary tract infection. I advised her to follow-up with her primary care provider for further evaluation and possible blood tests. The patient is agreeable to this plan of action. - Diagnoses Provider Diagnosis: Fatigue Discharge ED - Sign-Out/Discharge Documenting (check all that apply): Patient Departure All imaging exams completed and their final reports reviewed: No Studies - Discharge Plan Condition: Good Disposition: HOME Patient Education Materials: Viral Syndrome (ED) Referrals: Taylor Liu DO [Primary Care Provider] - Additional Instructions: Increase fluids, rest, follow-up with your primary care provider for the concerns we discussed. - Billing Disposition and Condition Condition: GOOD Disposition: Home
== END 2019-04-09 20:05 | disposition home or self-care (01) ==
LOC: UCCORT 17:43
DX: R53.83 Other fatigue (principal); F31.9 Bipolar disorder, unspecified; Z88.8 Allergy status to other drugs, medicaments and biological substances; Z91.048 Other nonmedicinal substance allergy status; F17.210 Nicotine dependence, cigarettes, uncomplicated
CPT/HCPCS: 81003; 99211; G0463

== ENCOUNTER 2019-06-16 10:40 | Emergency (ER) | payer OTHER ==
--- OUTSIDE RECORDS SUMMARY | 2019-06-16 10:47 | XMS REPORT | Continuity of Care Document ---
:1990 External Reference #:[id number] Author Name Taylor Liu DO (transmitted by agent of provider Vannessa Luna) Address [address] [place] [id number] Care Team Providers Name Role Phone [facility] - Care Team Information Business Integration Manager [phone] Clinic/Center Problems Active Problems Provider Date Generalized anxiety disorder Rick Soni MD Onset: 03/06/2018 Bipolar affective disorder, currently manic, in full Rick Soni MD Onset: 09/2017 remission Acute sinusitis Rick Soni MD Onset: 03/06/2018 Social History Type Date Description Comments Sex Unknown ETOH Use Denies alcohol use Tobacco Use Start: Unknown Patient is a current 1 pack currently. smoker, smokes every day Started age 14 Smoking Status Reviewed: 05/07/19 Patient is a current 1 pack currently. [...] for shortness of Aerosol breath or wheezing. Lidocream Apply a thin film 15gm Rick Soni MD 01/20/2018 4% Cream to affected area 2 to 3 times daily as needed Advair Diskus 2 puffs inhaled 60units J06.9 Taylor Noe, 01/01/2018 daily DO 100-50mcg/Dose Aerosol Acetaminophen Extra 2 tabs by mouth 120tabs M54.5 Taylor Noe, 2017 Strength three times a day DO 500mg Tablets as needed Hydroxyzine HCL 1 tab a day as 90tabs F31.74 Taylor Liu, 12/02/2017 10mg needed DO Tablets Bupropion HCL take 1 tablet by Unknown 100mg mouth once daily Tablets Latuda 1 by mouth every Unknown 40mg Tablets day Immunizations Description No Information Available Vital Signs Date Vital Result Comment 05/07/2019 10:05am Height 61 inches 5'1" Weight 286.00 lb Heart Rate 83 /min BP Systolic 130 mmHg BP Diastolic 85 mmHg Body Temperature 99.6 F O2 % BldC Oximetry 99 % BMI (Body Mass Index) 54.0 kg/m2 10/22/2018 11:53am Height 61 inches 5'1" Weight 290.00 lb Heart Rate 89 /min BP Systolic Sitting 130 mmHg BP Diastolic Sitting 72 mmHg O2 % BldC Oximetry 98 % BMI (Body Mass Index) 54.8 kg/m2 Results Test Acquired Date Facility Test Result H/L Range Note Laboratory test 05/07/2019 [facility] TSH <pending> finding 101 ([place] [address] Stim Horm) [phone] Vitamin B12 <pending> Vitamin D Total 25(Oh) <pending> Laboratory test 05/07/2019 [facility] Hemoglobin A1c <pending> finding 101 (Glyco HGB) [place] [address] [phone] Poc Urinalysis 04/09/2019 [facility] Poc Glucose, NEGATIVE Negative [address] [place] [address] [phone] Poc Bilirubin, Urine NEGATIVE Negative Poc Ketone, Urine NEGATIVE Negative Poc Specific [place], Urine 1.025 Normal 1.010-1.030 Poc Blood, Urine NEGATIVE Negative 1 Poc pH, Urine 5.5 Normal 5-9 Poc Protein, Urine NEGATIVE Negative Poc Urobilinogen, Urine 0.2 Negative Poc Nitrite, Urine NEGATIVE Negative Poc Leukocytes, Urine NEGATIVE Negative Poc Color, Urine YELLOW Poc Clarity, Urine CLEAR Laboratory 12/28/2018 [facility] Rapid Strep Negative Negative 2 test finding [address] [place] [address] [phone] Laboratory 12/18/2018 [facility] Hemoglobin A1c 5.6 % Normal 4.0-5.6 3 test finding [address] (Glyco HGB) [place] [address] [phone] Silverware Supervisor: [id number] Silverware Supervisor: [id number] Therapeutic target for the treatment of diabetes mellitus patients is <7% HBA1C, and in selective patients <6.0%. Please refer to [place] [employer] diabetic care guidelines for further information. Procedures Description No Information Available Medical Devices Description No Information Available Encounters Description No Information Available Assessments Date Code Description Provider 05/07/2019 R06.83 Snoring Taylor Liu, 05/07/2019 Z72.0 Tobacco use Taylor Liu, 05/07/2019 R53.83 Other fatigue Taylor Liu DO 05/07/2019 L60.0 Ingrowing nail Taylor Liu DO 05/07/2019 Z68.43 Body mass index (BMI) 50-59.9, adult Taylor Liu DO Plan of Treatment Future Appointment(s):11/02/2019 10:20 am - Taylor Liu DO at [facility] - [address]/07/2019 - Taylor Liu DOR06.83 SnoringComments:I am referring you to sleep [id number] Tobacco useR53.83 Other [id number] Ingrowing nailReferral:Reg Agustin DPM, AilzktaoroY41.43 Body mass index (BMI) 50-59.9, adultFollow up:6 months Functional Status Description No Information Available Mental Status Description No Information Available Referrals Refer to Reason for Referral Status Appt Date Reg Agustin DPM Created [address] [address] [phone]
[2019-06-16 10:55] VITALS: BP 129/64
--- NOTE | 2019-06-16 11:24 | UC ---
Respiratory Complaint HPI - HPI Summary HPI Summary: 29-year-old female who has had cough and wheezing for 4 days. She tried to get into her primary care providers but states they were not seeing patients. She has asthma. She is presently a smoker. Denies any fever or chills. - History of Current Complaint Chief Complaint: UCGeneralIllness Stated Complaint: COUGH,SINUS,SOB Time Seen by Provider: 06/16/19 11:23 Hx Obtained From: Patient Hx Last Menstrual Period: 06/11/19 ?: No Onset/Duration: Gradual Onset Timing: Intermittent Episodes Severity Initially: Mild Severity Currently: Mild Pain Intensity: 0 Character: Cough: Nonproductive Aggravating Factors: Deep Breaths Alleviating Factors: Nothing Associated Signs And Symptoms: Positive: Wheezing, Nasal Congestion - Allergies/Home Medications Allergies/Adverse Reactions: Allergies Allergy/AdvReac Type Severity Reaction Status Date / Time SSRI MEDICATION Allergy Unknown ANXIETY, Uncoded 06/16/19 10:49 PARINOID Gain laundry detergent Allergy Hives Uncoded 06/16/19 10:49 Home Medications: Home Medications hydrOXYzine HCL TAB* [Atarax 10 MG TAB*] 10 mg PO DAILY PRN 12/17/17 [History Confirmed 06/16/19] Albuterol HFA INHALER* [Ventolin HFA Inhaler*] 1 puff INH Q6H PRN 7 Days #1 mdi 04/23/18 [Rx Confirmed 06/16/19] Lurasidone(*) [Latuda] 40 mg PO DAILY 12/28/18 [History Confirmed 06/16/19] SUMAtriptan TAB* [Imitrex TAB*] 100 mg PO SEE INSTRUCTIONS #10 tab 04/02/19 [Rx Confirmed 06/16/19] buPROPion SR TAB* [Wellbutrin SR TAB*] 100 mg PO DAILY 04/02/19 [History Confirmed 06/16/19] Albuterol HFA INHALER* [Ventolin HFA Inhaler*] 2 puff INH Q4H PRN 5 Days #1 mdi 06/16/19 [Rx] predniSONE 10 mg TAB [Deltasone 10 MG TAB*] 10 mg PO DAILY 12 Days #30 tab 06/15 [Rx] PMH/Surg Hx/FS Hx/Imm Hx Previously Healthy: Yes Respiratory History: Asthma Other History Of: Negative For: HIV, Hepatitis B, Hepatitis C, Anticoagulant Therapy - Surgical History Surgical History: Yes Surgery Procedure, Year, and Place: , 2007, [facility]. [place] - Family History Known Family History: Positive: Hypertension, Diabetes, Other - BIPOLAR Negative: Cardiac Disease - Social History Alcohol Use: Rare Substance Use Type: None Substance Use Comment - Amount & Last Used: from last visit-no use in 2 weeks, states in an out pt tx center Smoking Status (MU): Heavy Every Day Tobacco Smoker Type: Cigarettes Amount Used/How Often: 1/2 PPD Length of Time of Smoking/Using Tobacco: since age 14 Have You Smoked in the Last Year: Yes Household Exposure Type: Cigarettes - Immunization History Most Recent Influenza Vaccination: unknown Most Recent Pneumonia Vaccination: N/A Vaccination Up to Date: Yes Review of Systems All Other Systems Reviewed And Are Negative: Yes ENT: Positive: Nasal Discharge Respiratory: Positive: Cough - Wheezing Is Patient Immunocompromised?: No Physical Exam Triage Information Reviewed: Yes Appearance: Well-Appearing, No Pain Distress, Well-Nourished Vital Signs: Initial Vital Signs Temp 97.6 F 06/16/19 10:49 Pulse 91 06/16/19 10:49 Resp 16 06/16/19 10:49 BP 129/64 06/16/19 10:49 Pulse Ox 97 06/16/19 10:49 Vital Signs Reviewed: Yes Eyes: Positive: Conjunctiva Clear ENT: Positive: Pharynx normal, TMs normal, Uvula midline Neck: Positive: Supple, Nontender, No Lymphadenopathy Respiratory: Positive: No respiratory distress, No accessory muscle use, Wheezing - Mild wheezing throughout all lung curry with forced expiration, no distress. Cardiovascular: Positive: RRR, No Murmur, Pulses Normal, Brisk Capillary Refill Musculoskeletal Exam: Normal Neurological Exam: Normal Psychological Exam: Normal Skin Exam: Normal Respiratory Course/Dx - Course Course Of Treatment: The patient was given a DuoNeb treatment with increased aeration and decreased wheezing. She felt much better following the treatment. - Differential Dx/Diagnosis Provider Diagnosis: Bronchitis Discharge ED - Sign-Out/Discharge Documenting (check all that apply): Patient Departure All imaging exams completed and their final reports reviewed: No Studies - Discharge Plan Condition: Good Disposition: HOME Prescriptions: Albuterol HFA INHALER* [Ventolin HFA Inhaler*] 2 puff INH Q4H PRN 5 Days #1 mdi PRN Reason: Wheezing predniSONE 10 mg TAB [Deltasone 10 MG TAB*] 10 mg PO DAILY 12 Days #30 tab Patient Education Materials: Acute Bronchitis (ED) Referrals: Taylor Liu DO [Primary Care Provider] - Additional Instructions: Increase fluids, continue to use your albuterol inhaler 2 puffs every 4-6 hours as needed for wheezing. Take the prednisone with food. Follow-up with your primary care provider if no improvement in 4 or 5 days. - Billing Disposition and Condition Condition: GOOD Disposition: Home
[2019-06-16] MEDS ORDERED: Albuterol/Ipratropium NEB.SOL* Albuterol 2.5 MG/Ipratropium 0.5 MG 3 ML INH ONE (11:28)
== END 2019-06-16 12:06 | disposition home or self-care (01) ==
LOC: UCCORT 10:40
DX: J45.909 Unspecified asthma, uncomplicated (principal); F17.210 Nicotine dependence, cigarettes, uncomplicated; Z79.899 Other long term (current) drug therapy; Z88.8 Allergy status to other drugs, medicaments and biological substances; Z91.09 Other allergy status, other than to drugs and biological substances
CPT/HCPCS: 99212; A9270-GY; G0463